=== PATIENT | female | born 1960 | race African-American/Black ===

== ENCOUNTER 2020-06-28 09:35 | Inpatient (IN) ==
[2020-06-28 09:57] VITALS: BMI 37.1
--- NOTE | 2020-06-28 10:16 | DR.EXTPAIN ---
HPI Time seen Time Seen by Provider: 06/28/20 10:09 PCP Primary Care Physician: RAY CARPIO HPI Comment HPI Comment: Patient brought in by family. Family reports that patient fell a few days ago and hurt the right foot. Continued to complain of pain, so family brought her in for eval. Family notes that the leg is hot and swollen since the fall. Patient with dementia and doesn't contribute to history. Complaint/Symptoms Chief Complaint:: PT STATES SHE FELL YESTERDAY ( C/O RIGHT FOOT PAIN ) EDEMA , REDNESS AND WARMTH NOTED ,BR NO DEFORMITY NOTED ,BR PT POOR HISTORIAN DUE TO DEMENTIA COVID-19 Coronavirus risk:travel/contact w/high risk person: No Has patient experienced Coronavirus symptoms: No Source History Provided: Patient Mode of arrival Mode of Arrival: Stretcher Timing Onset of Chief Complaint: 06/27/20 PMH PMH Past Medical History: Yes Past Medical History: Anemia, Arthritis, Diabetes, Gout and Hypertension Past Surgical History: Yes Family History History of Family Medical Conditions: No Social History Have you used tobacco products in the last 12 months: No Type of Tobacco Use: None Does any household member use tobacco: No Alcohol Use: None Do you use any recreational Drugs:: No Lives With: Family Lives Where: Home Travel Risk Coronavirus risk:travel/contact w/high risk person: No Has patient experienced Coronavirus symptoms: No Infectious screening In the last 2 months have you had wt loss of >10#?: NO Have you had fever, night sweats or hemotysis?: No Have you traveled outside the country in the last 6 months?: No Isolation: Standard ROS Review of Systems Constitutional: See HPI and Fever Musculoskeletal: See HPI, Right and Leg All Other Systems: Reviewed and Negative PE Vital Signs Vitals: Temperature 100.3 F Pulse Rate 91 Respiratory Rate 20 Blood Pressure 137/65 O2 Sat by Pulse Oximetry 97 General Limitations: Altered Mental Status (h/o dementia at baseline. ) General Appearance: In No Apparent Distress ENT ENT Exam: Normal Exam Neck Neck Exam: Normal Inspection Chest Chest Inspection: Normal Inspection and Symmetric Chest Wall Rise Respiratory Respiratory Exam: Normal Lung Sounds Bilat Respiratory Exam: Bilateral: Clear to Auscultation Extremities Extremities Exam: Tenderness and Other (redness, increased temperature and tenderness at the right leg. ) COURSE Treatment Treatment: Spoke with Dr. Beach who accepts patient for admission. Consult placed for Ortho, awaiting callback. ROR Labs Reviewed Result Diagrams: 06/28/20 10:06/28/20 10:27 Laboratory: WBC 11.9 X10^3/uL (3.6-10.0) H 06/28/20 10: RBC 2.93 X10^6/uL (3.5-5.4) L 06/28/20 10: Hgb 8.2 g/dL (12.0-16.0) L 06/28/20 10:27 Hct 25.9 % (36.0-47.0) L 06/28/20 10:27 MCV 88.3 fL (80.0-100.0) 06/28/20 10: MCH 28.1 pg (27.0-34.0) 06/28/20 10: MCHC 31.9 g/dL (33.0-35.0) L 06/28/20 10: RDW 16.1 % (11.6-16.5) 06/28/20 10:27 Plt Count 151 X10^3/uL (150.0-450.0) 06/28/20 10:27 MPV 7.9 fL (7.4-11.0) 06/28/20 10:27 Neut % (Auto) 83.2 % (42.0-75.0) H 06/28/20 10: Lymph % (Auto) 7.3 % (21.0-51.0) L 06/28/20 10: [place] % (Auto) 8.5 % (0.0-13.0) 06/28/20 10:27 Eos % (Auto) 0.7 % (0.9-2.9) L 06/28/20 10:27 Baso % (Auto) 0.3 % (0.2-1.0) 06/28/20 10:27 Neut # (Auto) 9.9 x10^3/uL (2.2-4.8) H 06/28/20 10:27 Lymph # (Auto) 0.9 X10^3/uL (1.3-2.9) L 06/28/20 10:27 [place] # (Auto) 1.0 x10^3/uL (0.3-0.8) H 06/28/20 10:27 Eos # (Auto) 0.1 x10^3/uL (0.0-0.2) 06/28/20 10:27 Baso # (Auto) 0.0 X10^3/uL (0.0-0.1) 06/28/20 10:27 Absolute Nucleated RBC 0.0 /100WBC 06/28/20 10:27 D-Dimer 7.98 ug/ml (0.0-0.57) H* 06/28/20 10:27 Sodium 145 mmol/L (136-145) 06/28/20 10:27 Corrected Sodium 146 mmol/L (136-145) H 06/28/20 10:27 Potassium 4.4 mmol/L (3.5-5.1) 06/28/20 10:27 Chloride 109 mmol/L (98-107) H 06/28/20 10:27 Carbon Dioxide 21.1 mmol/L (21-32) 06/28/20 10:27 BUN 54 mg/dL (7-18) H 06/28/20 10:27 Creatinine 5.54 mg/dL (0.55-1.02) H 06/28/20 10:27 Est GFR (MDRD) Af Amer 10 (>60) L 06/28/20 10:27 Est GFR (MDRD) Non-Af 8 (>60) L 06/28/20 10:27 Glucose 151 mg/dL (65-99) H 06/28/20 10:27 Calcium 7.5 mg/dL (8.5-10.1) L 06/28/20 10:27 Corrected Calcium 8.2 mg/dL (8.5-10.1) L 06/28/20 10:27 Total Bilirubin 2.40 mg/dL (0.2-1.0) H 06/28/20 10:27 AST 39 Units/L (15-37) H 06/28/20 10:27 ALT 23 Units/L (12-78) 06/28/20 10:27 Alkaline Phosphatase 113 Units/L (46-116) 06/28/20 10:27 Total Protein 8.3 g/dL (6.4-8.2) H 06/28/20 10:27 Albumin 3.1 g/dL (3.4-5.0) L 06/28/20 10:27 Globulin 5.2 g/dL (2.5-4.5) H 06/28/20 10:27 Albumin/Globulin Ratio 0.6 Ratio (1.1-2.1) L 06/28/20 10:27 Specimen Type Catherized urine 06/28/20 14:03 Urine Color Yellow (YELLOW) 06/28/20 14:03 Urine Appearance Clear (CLEAR) 06/28/20 14:03 Urine pH 6.0 (5.0 - 8.0) 06/28/20 14:03 Ur Specific [place] 1.010 (1.000-1.030) 06/28/20 14:03 Urine Protein 4+ (NEGATIVE) 06/28/20 14:03 Urine Glucose (UA) Negative (NEGATIVE) 06/28/20 14:03 Urine Ketones 2+ (NEGATIVE) 06/28/20 14:03 Urine Occult Blood 2+ (NEGATIVE) 06/28/20 14:03 Urine Nitrite Negative (NEGATIVE) 06/28/20 14:03 Urine Bilirubin Negative (NEGATIVE) 06/28/20 14:03 Urine Urobilinogen Normal (NORMAL) 06/28/20 14:03 Ur Leukocyte Esterase Negative (NEGATIVE) 06/28/20 14:03 Urine RBC 0-2 /HPF (0-3) 06/28/20 14:03 Urine WBC 0-2 /HPF (0-5) 06/28/20 14:03 Ur Squamous Epith Cells Few /HPF (NEGATIVE) 06/28/20 14:03 Amorphous Sediment Trace /HPF (NEGATIVE) 06/28/20 14:03 Urine Bacteria Trace /HPF (NEGATIVE) 06/28/20 14:03 Ur Culture Indicated? No/not indicated 06/28/20 14:03 Influenza Type A Ag Negative-presumptive (NEGATIVE) 06/28/20 10:23 Influenza Type B Ag Negative-presumptive (NEGATIVE) 06/28/20 10:23 SARS-CoV-2 (PCR) Negative (NEGATIVE) 06/28/20 13:31 Other Results Comments: HISTORY PAIN, EDEMA, FEVER RT LOWER EXT STUDY Duplex LOWER EXT VENOUS ultrasound, right COMPARISON None TECHNIQUE Multiple choi scale and color flow Doppler images of the deep venous system were obtained of the right lower extremity. FINDINGS The deep venous system of the right lower extremity was evaluated from the level of the common femoral vein through the posterior tibial vein. Normal color flow and augmentation can be observed. In addition, normal compression is seen throughout the deep venous system. IMPRESSION Negative for DVT in right lower extremity. Electronically signed by: Oswald Segura (Jun 28, 2020 11:58:43) HISTORY FEVER UNKNOWN ORIGIN STUDY CHEST, 1 VIEW COMPARISON None TECHNIQUE AP view of the chest FINDINGS Cardiac silhouette is enlarged. Diffuse mild scattered interstitial opacities with right infrahilar airspace opacity. No large pleural effusion. No pneumo thorax. IMPRESSION Cardiomegaly. Interstitial and airspace opacities may represent pulmonary edema or pneumonia. Electronically signed by: Facundo Perry (Jun 28, 2020 10:41:18) HISTORY PT STATES SHE FELL YESTERDAY ( C/O RIGHT FOOT PAIN ) EDEMA,REDNESS AND WARMTH STUDY FOOT, RIGHT COMPARISON None TECHNIQUE Three-view right foot FINDINGS Severe soft tissue swelling about the ankle and foot. There is avulsion of the superior calcaneal tuberosity. Multiple vascular calcifications are present. Osteopenia. Increased density of bones in the midfoot particularly the cuboid. IMPRESSION Avulsion fracture of the superior calcaneal tuberosity at the Achilles insertion is associated with diabetes. Severe soft tissue swelling about the foot and ankle. Increased density of bones in the midfoot particularly the cuboid may represent bone infarct but other sclerotic lesion is not excluded. Consider MRI. Electronically signed by: Facundo Perry (Jun 28, 2020 10:44:09) Opioid Opioid Risk Tool Age (Roby box if 16-45): No Total: 0 Total Score Risk Category: Low Risk Copyright: Livan MARIO predicting aberrant behaviors Diagnosis Discharge Problem: Cellulitis and abscess of right leg Pneumonia Qualifiers: Pneumonia type: due to unspecified organism Laterality: right Lung location: unspecified part of lung Qualified Code(s): J18.9 - Pneumonia, unspecified organism Acute renal failure Qualifiers: Acute renal failure type: unspecified Qualified Code(s): N17.9 - Acute kidney failure, unspecified Foot fracture, right Qualifiers: Encounter type: initial encounter Fracture type: closed Qualified Code(s): S92.901A - Unspecified fracture of right foot, initial encounter for closed fracture
[2020-06-28] MEDS ORDERED: NS 1000 ML 1,000 ML ONE ×3 (10:18→14:23)
[2020-06-28] MEDS ORDERED: TYLENOL 500 MG TAB EXTRA STRENGTH PO ONE (10:18)
[2020-06-28] MEDS: NS 1000 ML 1,000 ML IV ONE ×2 (10:22→12:05)
[2020-06-28] MEDS: TYLENOL 500 MG TAB EXTRA STRENGTH PO ONE ×2 (10:23→11:03)
[2020-06-28] MEDS ORDERED: OFIRMEV IV 1000 MG VIAL 1,000 MG/100 ML VIAL IV ONE (10:33)
[2020-06-28] MEDS: OFIRMEV IV 1000 MG VIAL 1,000 MG/100 ML VIAL IV ONE ×2 (10:35→11:03)
--- NOTE | 2020-06-28 10:41 | RAD ---
HISTORYFEVER UNKNOWN ORIGINSTUDYCHEST, 1 VIEWCOMPARISONNoneTECHNIQUEAP view of the chestFINDINGSCardiac silhouette is enlarged. Diffuse mild scattered interstitial opacities with right infrahilar airspace opacity. No large pleural effusion. No pneumothorax.IMPRESSIONCardiomegaly. Interstitial and airspace opacities may represent pulmonary edema or pneumonia.Electronically signed by: Facundo Perry (Jun 28, 2020 10:41:18)
[2020-06-28 10:42] LABS: BASOPHILS % (AUTO) 0.3 % (0.2-1.0); EOSINOPHILS # (AUTO) 0.1 x10^3/uL (0.0-0.2); EOSINOPHILS % (AUTO) 0.7 % (0.9-2.9); HEMATOCRIT 25.9 % (36.0-47.0); HEMOGLOBIN 8.2 g/dL (12.0-16.0); LYMPHOCYTES # (AUTO) 0.9 X10^3/uL (1.3-2.9); LYMPHOCYTES % (AUTO) 7.3 % (21.0-51.0); MEAN CORPUSCULAR HEMOGLOBIN 28.1 pg (27.0-34.0); MEAN CORPUSCULAR HGB CONC 31.9 g/dL (33.0-35.0); MEAN CORPUSCULAR VOLUME 88.3 fL (80.0-100.0); MEAN PLATELET VOLUME 7.9 fL (7.4-11.0); MONOCYTES % (AUTO) 8.5 % (0.0-13.0); NEUTROPHILS # (AUTO) 9.9 x10^3/uL (2.2-4.8); NEUTROPHILS % (AUTO) 83.2 % (42.0-75.0); PLATELET COUNT 151 X10^3/uL (150.0-450.0); RED BLOOD COUNT 2.93 X10^6/uL (3.5-5.4); RED CELL DISTRIBUTION WIDTH 16.1 % (11.6-16.5); WHITE BLOOD COUNT 11.9 X10^3/uL (3.6-10.0)
--- NOTE | 2020-06-28 10:44 | RAD ---
HISTORYPT STATES SHE FELL YESTERDAY ( C/O RIGHT FOOT PAIN ) EDEMA,REDNESS AND WARMTHSTUDYFOOT, RIGHTCOMPARISONNoneTECHNIQUEThree-view right footFINDINGSSevere soft tissue swelling about the ankle and foot. There is avulsion of the superior calcaneal tuberosity. Multiple vascular calcifications are present. Osteopenia. Increased density of bones in the midfoot particularly the cuboid.IMPRESSIONAvulsion fracture of the superior calcaneal tuberosity at the Achilles insertion is associated with diabetes. Severe soft tissue swelling about the foot and ankle.Increased density of bones in the midfoot particularly the cuboid may represent bone infarct but other sclerotic lesion is not excluded. Consider MRI.Electronically signed by: Facundo Perry (Jun 28, 2020 10:44:09)
[2020-06-28 10:51] LABS: ALBUMIN 3.1 g/dL (3.4-5.0); CALCIUM 7.5 mg/dL (8.5-10.1); CARBON DIOXIDE 21.1 mmol/L (21-32); COR CA(FOR HYPOALB) 8.2 mg/dL (8.5-10.1); CREATININE 5.54 mg/dL (0.55-1.02); TOTAL PROTEIN 8.3 g/dL (6.4-8.2)
--- NOTE | 2020-06-28 11:59 | VAS ---
HISTORYPAIN, EDEMA, FEVER RT LOWER EXTSTUDYDuplex LOWER EXT VENOUS ultrasound, rightCOMPARISONNoneTECHNIQUEMultiple choi scale and color flow Doppler images of the deep venous system were obtained of the right lower extremity.FINDINGSThe deep venous system of the right lower extremity was evaluated from the level of the common femoral vein through the posterior tibial vein. Normal color flow and augmentation can be observed. In addition, normal compression is seen throughout the deep venous system.IMPRESSIONNegative for DVT in right lower extremity.Electronically signed by: Oswald Segura (Jun 28, 2020 11:58:43)
[2020-06-28] MEDS ORDERED: LEVAQUIN PREMIX IV 750 MG 750 MG/150 ML BAG IV ONE ×2 (13:30→13:49)
[2020-06-28 14:15] LABS: BILIRUBIN,URINE NEGATIVE (NEGATIVE); BLOOD/HEMOGLOBIN,URINE 2+ (NEGATIVE); GLUCOSE, URINE NEGATIVE (NEGATIVE); KETONES,URINE 2+ (NEGATIVE); LEUKOCYTE ESTERASE ,URINE NEGATIVE (NEGATIVE); NITRITES,URINE NEGATIVE (NEGATIVE); PROTEIN,URINE 4+ (NEGATIVE); UROBILINOGEN,URINE NORMAL (NORMAL)
[2020-06-28 14:32] LABS: AMORPHOUS SEDIMENT,UR TRACE /HPF (NEGATIVE); APPEARANCE,URINE CLEAR (CLEAR); BACTERIA,URINE TRACE /HPF (NEGATIVE); COLOR,URINE YELLOW (YELLOW); RBC,URINE 0-2 /HPF (0-3); SQUAMOUS EPITHELIAL CELL,UR FEW /HPF (NEGATIVE)
[2020-06-28] MEDS: NS 1000 ML 1,000 ML IV SCH (17:57)
[2020-06-29] MEDS ORDERED: PERCOCET TAB 5/325 MG PO ONE (03:45)
[2020-06-29] MEDS ORDERED: PERCOCET TAB 5/325 MG ONE (03:48)
[2020-06-29 06:40] LABS: BASOPHILS % (AUTO) 0.3 % (0.2-1.0); EOSINOPHILS # (AUTO) 0.1 x10^3/uL (0.0-0.2); EOSINOPHILS % (AUTO) 1.1 % (0.9-2.9); MONOCYTES # (AUTO) 0.4 x10^3/uL (0.3-0.8); WHITE BLOOD COUNT 7.9 X10^3/uL (3.6-10.0)
[2020-06-29 06:47] LABS: HEMATOCRIT 20.5 % (36.0-47.0); LYMPHOCYTES # (AUTO) 0.7 X10^3/uL (1.3-2.9); LYMPHOCYTES % (AUTO) 9.4 % (21.0-51.0); MEAN CORPUSCULAR HEMOGLOBIN 29.3 pg (27.0-34.0); MEAN CORPUSCULAR HGB CONC 32.9 g/dL (33.0-35.0); MEAN PLATELET VOLUME 7.8 fL (7.4-11.0); MONOCYTES % (AUTO) 4.9 % (0.0-13.0); NEUTROPHILS # (AUTO) 6.7 x10^3/uL (2.2-4.8); NEUTROPHILS % (AUTO) 84.3 % (42.0-75.0); PLATELET COUNT 128 X10^3/uL (150.0-450.0); RED CELL DISTRIBUTION WIDTH 16.2 % (11.6-16.5)
[2020-06-29 06:51] LABS: HEMOGLOBIN 6.7 g/dL (12.0-16.0)
[2020-06-29 06:52] LABS: ALBUMIN 2.2 g/dL (3.4-5.0); CALCIUM 6.8 mg/dL (8.5-10.1); CARBON DIOXIDE 19.4 mmol/L (21-32); COR CA(FOR HYPOALB) 8.2 mg/dL (8.5-10.1); CREATININE 5.36 mg/dL (0.55-1.02); TOTAL PROTEIN 6.4 g/dL (6.4-8.2)
[2020-06-29] MEDS ORDERED: ZITHROMAX TAB 250 MG PO ONE (07:59)
--- NOTE | 2020-06-29 09:26 | DR.H&P ---
H&P History & Physical for Day of: H&P Date: 06/29/20 Chief Complaint Chief Complaint: fall and right foot pain and swelling Allergies Allergies Allergy/AdvReac Type Severity Reaction Status Date / Time No Known Drug Allergies Allergy Verified 06/28/20 09:35 History of Present Illness History of Present Illness: Ms. Harris is a 59y/o female with a PMH of HTN, H LD, GERD, CKD, Type 2 DM and chronic opioid use presented after a fall with right foot pain and swelling. Patient does has mild cognitive disorder and unable to provide details. She states she fell 1-2 days ago and hurt her right foot so was brought to the ED. She states she tripped over a rug and fell. Unclear what patient's baseline ambulation status is at home, no family present at bedside during my exam. ED work-up - Right foot XR: concerning for avulsion fracture and bone infarction or sclerotic lesion, recommend MRI to further evaluate - CXR: concerning for interstitial/airspace opacities, edema vs pna - Right LE U/S: negative for DVT Labs: Hgb 8.2 BUN/Cr: 54/5.54 Patient was noted to have swelling, redness and warmth of the right lower leg and foot. She was admitted for right foot fracture with cellulitis, acute on chronic renal failure and pneumonia. COVID was negative. Patient was on 2 L during my exam, reports mild cough. XR findings were discussed with Dr. Coreas, he recommended to continue boot to the right foot and IV abx. No surgery indicated at this time due to infection. If cellulitis does not improve or worsens, consider repeating U/S to rule out abscess. Plan: received IV levaquin in the ED, will start Rocephin and Azithromax, duonebs, sputum culture. Follow blood cultures. Obtain PCP records. Order MRI right foot. Repeat H/H and if < 7 then transfuse 2 units. Patient denies anemia panel, reports hx of transfusion. She also reports she was told in the past that she has renal disease. Patient is not on any medications for DM and denies being diabetic. Will add SSI for now. Monitor AM labs. Continue gentle hydration. Resume home medications. Past Medical History Past Medical History: Anemia, Arthritis, Diabetes, Gout and Hypertension Past Surgical History Surgical History: Ortho Surgery Social History Have you used tobacco products in the last 12 months: No Type of Tobacco Use: None Does any household member use tobacco: No Alcohol Use: None Drug Use: None Medications Home Medications: No Known Drug Allergies Allergy (Verified 06/28/20 09:35) CONTINUE taking the following medications amlodipine 5 mg PO DAILY 06/28/20 [History] clonidine HCl 0.1 mg PO DAILY 06/28/20 [History] diazepam 5 mg PO BID PRN 06/28/20 [History] furosemide 40 mg PO DAILY 06/28/20 [History] gabapentin 300 mg PO HS 06/28/20 [History] magnesium oxide 400 mg PO DAILY 06/28/20 [History] metoprolol tartrate 100 mg PO BID 06/28/20 [History] oxycodone 15 mg PO TID PRN 06/28/20 [History] potassium chloride 20 meq PO DAILY 06/28/20 [History] prednisone 5 mg PO DAILY 06/28/20 [History] tamsulosin 0.4 mg PO DAILY 06/28/20 [History] Labs Result Diagrams: 06/29/20 10:10 06/29/20 06:15 Labs: Laboratory WBC 7.9 X10^3/uL (3.6-10.0) 06/29/20 06:15 RBC 2.30 X10^6/uL (3.5-5.4) L 06/29/20 06:15 Hgb 6.7 g/dL (12.0-16.0) L* 06/29/20 06:15 Hct 20.5 % (36.0-47.0) L 06/29/20 06:15 MCV 89.0 fL (80.0-100.0) 06/29/20 06:15 MCH 29.3 pg (27.0-34.0) 06/29/20 06:15 MCHC 32.9 g/dL (33.0-35.0) L 06/29/20 06:15 RDW 16.2 % (11.6-16.5) 06/29/20 06:15 Plt Count 128 X10^3/uL (150.0-450.0) L 06/29/20 06:15 MPV 7.8 fL (7.4-11.0) 06/29/20 06:15 Neut % (Auto) 84.3 % (42.0-75.0) H 06/29/20 06:15 Lymph % (Auto) 9.4 % (21.0-51.0) L 06/29/20 06:15 [place] % (Auto) 4.9 % (0.0-13.0) 06/29/20 06:15 Eos % (Auto) 1.1 % (0.9-2.9) 06/29/20 06:15 Baso % (Auto) 0.3 % (0.2-1.0) 06/29/20 06:15 Neut # (Auto) 6.7 x10^3/uL (2.2-4.8) H 06/29/20 06:15 Lymph # (Auto) 0.7 X10^3/uL (1.3-2.9) L 06/29/20 06:15 [place] # (Auto) 0.4 x10^3/uL (0.3-0.8) 06/29/20 06:15 Eos # (Auto) 0.1 x10^3/uL (0.0-0.2) 06/29/20 06:15 Baso # (Auto) 0.0 X10^3/uL (0.0-0.1) 06/29/20 06:15 Absolute Nucleated RBC 0.0 /100WBC 06/29/20 06:15 D-Dimer 7.98 ug/ml (0.0-0.57) H* 06/28/20 10:27 Sodium 146 mmol/L (136-145) H 06/29/20 06:15 Corrected Sodium 147 mmol/L (136-145) H 06/29/20 06:15 Potassium 4.2 mmol/L (3.5-5.1) 06/29/20 06:15 Chloride 113 mmol/L (98-107) H 06/29/20 06:15 Carbon Dioxide 19.4 mmol/L (21-32) L 06/29/20 06:15 BUN 53 mg/dL (7-18) H 06/29/20 06:15 Creatinine 5.36 mg/dL (0.55-1.02) H 06/29/20 06:15 Est GFR (MDRD) Af Amer 11 (>60) L 06/29/20 06:15 Est GFR (MDRD) Non-Af 9 (>60) L 06/29/20 06:15 Glucose 123 mg/dL (65-99) H 06/29/20 06:15 POC Glucose (mg/dL) 117 mg/dL (65-99) H 06/29/20 05:19 Calcium 6.8 mg/dL (8.5-10.1) L 06/29/20 06:15 Corrected Calcium 8.2 mg/dL (8.5-10.1) L 06/29/20 06:15 Total Bilirubin 0.90 mg/dL (0.2-1.0) 06/29/20 06:15 AST 31 Units/L (15-37) 06/29/20 06:15 ALT 17 Units/L (12-78) 06/29/20 06:15 Alkaline Phosphatase 84 Units/L (46-116) 06/29/20 06:15 Total Protein 6.4 g/dL (6.4-8.2) 06/29/20 06:15 Albumin 2.2 g/dL (3.4-5.0) L 06/29/20 06:15 Globulin 4.2 g/dL (2.5-4.5) 06/29/20 06:15 Albumin/Globulin Ratio 0.5 Ratio (1.1-2.1) L 06/29/20 06:15 Specimen Type Catherized urine 06/28/20 14:03 Urine Color Yellow (YELLOW) 06/28/20 14:03 Urine Appearance Clear (CLEAR) 06/28/20 14:03 Urine pH 6.0 (5.0 - 8.0) 06/28/20 14:03 Ur Specific [place] 1.010 (1.000-1.030) 06/28/20 14:03 Urine Protein 4+ (NEGATIVE) 06/28/20 14:03 Urine Glucose (UA) Negative (NEGATIVE) 06/28/20 14:03 Urine Ketones 2+ (NEGATIVE) 06/28/20 14:03 Urine Occult Blood 2+ (NEGATIVE) 06/28/20 14:03 Urine Nitrite Negative (NEGATIVE) 06/28/20 14:03 Urine Bilirubin Negative (NEGATIVE) 06/28/20 14:03 Urine Urobilinogen Normal (NORMAL) 06/28/20 14:03 Ur Leukocyte Esterase Negative (NEGATIVE) 06/28/20 14:03 Urine RBC 0-2 /HPF (0-3) 06/28/20 14:03 Urine WBC 0-2 /HPF (0-5) 06/28/20 14:03 Ur Squamous Epith Cells Few /HPF (NEGATIVE) 06/28/20 14:03 Amorphous Sediment Trace /HPF (NEGATIVE) 06/28/20 14:03 Urine Bacteria Trace /HPF (NEGATIVE) 06/28/20 14:03 Ur Culture Indicated? No/not indicated 06/28/20 14:03 Influenza Type A Ag Negative-presumptive (NEGATIVE) 06/28/20 10:23 Influenza Type B Ag Negative-presumptive (NEGATIVE) 06/28/20 10:23 SARS-CoV-2 (PCR) Negative (NEGATIVE) 06/28/20 13:31 Review of Systems Constitutional: Fever and Weakness Eyes: No Symptoms Reported ENT: No Symptoms Reported Respiratory: Cough and Sputum Cardiovascular: No Symptoms Reported Gastrointestinal: No Symptoms Reported Genitourinary: No Symptoms Reported Musculoskeletal: Leg Pain and Foot Pain Skin: Other (right foot redness) Neurological: No Symptoms Reported Physical Exam Vital Signs: Temperature 98 F Pulse Rate [Right Brachial] 83 Pulse Rate 91 Respiratory Rate 20 Blood Pressure [Right Arm] 121/75 Blood Pressure 137/65 O2 Sat by Pulse Oximetry 99 Oriented: Normal Eyes: Normal Ear: Normal Nose: Normal Respiratory: Diminished Throughout, RLL Insp. Wheeze and LLL Insp.Wheeze Cardiovascular: Normal Auscultation: Bowel Sounds: Normal Palpation: Normal Tenderness: Normal Skin: Other (right foot warm, slight erythema, limited ROM, no open wounds or blisters ) Musculoskeletal: Right and Foot Psychiatric: Normal Mood Description: Calm Affect: Normal Speech Pattern: Clear and Delayed Assessment/Plan (1) Foot fracture, right: Qualifiers: Encounter type: initial encounter Fracture type: closed Qualified Code(s): S92.901A - Unspecified fracture of right foot, initial encounter for closed fracture Status: Acute (2) Cellulitis of right foot: Status: Acute (3) Acute on chronic renal failure: Qualifiers: Acute renal failure type: unspecified Chronic kidney disease stage: unspecified stage Qualified Code(s): N17.9 - Acute kidney failure, unspecified; N18.9 - Chronic kidney disease, unspecified Status: Acute (4) Pneumonia: Qualifiers: Pneumonia type: due to unspecified organism Laterality: unspecified laterality Lung location: unspecified part of lung Qualified Code(s): J18.9 - Pneumonia, unspecified organism Status: Acute (5) HTN (hypertension): Qualifiers: Hypertension type: essential hypertension Qualified Code(s): I10 - Essential (primary) hypertension Status: Acute (6) HLD (hyperlipidemia): Qualifiers: Hyperlipidemia type: unspecified Qualified Code(s): E78.5 - Hyperlipidemia, unspecified Status: Acute Review H&P Reviewed: Yes Patient was examined?: Yes
[2020-06-29] MEDS ORDERED: NEURONTIN CAP 300 MG ONE (09:40)
[2020-06-29] MEDS: NS 1000 ML 1,000 ML IV SCH ×2 (09:48→23:01)
[2020-06-29] MEDS: LOPRESSOR TAB 50 MG PO SCH ×2 (09:49→21:00)
[2020-06-29] MEDS: ROCEPHIN VIAL 1 GRAM 1 G in NS 100 ML IV + SPIKE MINIBAG* 100 ML IV SCH ×2 (09:49)
[2020-06-29] MEDS: NORVASC TAB 5 MG PO SCH ×2 (09:50→09:51)
[2020-06-29] MEDS: DUONEB 0.5 MG/3 MG (3 mL) NEB SCH ×3 (10:13→21:30)
[2020-06-29 10:23] LABS: HEMATOCRIT 21.2 % (36.0-47.0)
[2020-06-29 10:30] LABS: HEMOGLOBIN 6.9 g/dL (12.0-16.0)
[2020-06-29] MEDS ORDERED: NS 500 ML IV 500 ML IV ONE (10:42)
[2020-06-29] MEDS: PERCOCET TAB 5/325 MG PO PRN ×2 (14:40→21:00)
[2020-06-29] MEDS ORDERED: ZANAFLEX PO PRN (15:08)
--- NOTE | 2020-06-29 17:14 | MRI ---
Exam:EXT LOWER JOINT W/O CONIndication: RT FOOT FX, XR CONCERNING FOR INFECTION,PAIN, SWELLINGComparison: [None available]Technique:Multiplanar, multisequence imaging of the right foot without IV contrast administration.Findings:[Examination limited by lack of intravenous contrast administration. Moderately displaced large avulsion fracture within the posterior calcaneus with retraction of the Achilles tendon. There is mild bone marrow edema at site of avulsion within the posterior calcaneus.Large infarcts are noted within the distal tibia with additional infarcts present within the cuboid, intermediate cuneiform, great toe and 5th toe metatarsal bones. 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 No acute tear of the medial or lateral ankle ligamentous complexes.Mild tenosynovitis of the posterior tibialis and peroneus tendons. Moderate fatty atrophy of the flexor hallucis longus tendon.Non localizing diffuse soft tissue swelling within the right foot. There is no abnormal STIR or T1 signal within the distal right foot to suggest osteomyelitis. No definite gas or localizing fluid collection within the foot.Lisfranc ligament is normal. Plantar fascia demonstrates these fight formation with chronic fasciitis of the medial band, no evidence of acute fasciitis. Intrinsic flexor muscles of the foot are intact. Long plantar ligament is intact. Sinus tarsi demonstrates no signal abnormality to suggest underlying cyst or mass. There is no acute sprain of the interosseous or cervical ligaments.IMPRESSIONDiffuse soft tissue swelling within the right foot without localizing fluid collection or gas. No marrow signal changes within the foot to suggest acute osteomyelitis.Moderately displaced large avulsion fracture at the Achilles insertion onto the posterior calcaneus. Mild edema is noted within the posterior calcaneus at site of avulsion.Either chronic avulsion fracture of the posterior tibialis tendon or type 2 os navicular with pseudoarthrosis and degenerative change of the ossicle and medial navicular.Osteonecrosis of the distal tibia, cuboid, intermediate cuneiform, 1st and 5th toe metatarsal bones.Chronic plantar fasciitis involving the medial band of the plantar fascia without evidence of acute fasciitis.Mild tenosynovitis of the peroneal and posterior tibialis tendons.Electronically signed by: MARIA EUGENIA HUERTA (Jun 29, 2020 17:14:22)
[2020-06-29 17:25] LABS: IRON 31 ug/dL (50-175)
[2020-06-29 19:12] LABS: CREATININE,URINE 67.74 mg/dL (29-226)
[2020-06-29] MEDS: NEURONTIN CAP 300 MG PO SCH (21:00)
[2020-06-30] MEDS ORDERED: NS 250 ML IV 250 ML IV ONE (01:04)
[2020-06-30] MEDS: PERCOCET TAB 5/325 MG PO PRN ×4 (03:30→23:51)
[2020-06-30] MEDS ORDERED: MAG-OX TAB ONE (05:32)
[2020-06-30] MEDS: DUONEB 0.5 MG/3 MG (3 mL) NEB SCH ×3 (06:35→21:20)
[2020-06-30] MEDS: MAG-OX TAB PO SCH (06:41)
[2020-06-30 07:40] LABS: CARBON DIOXIDE 16.9 mmol/L (21-32); CREATININE 5.08 mg/dL (0.55-1.02)
[2020-06-30] MEDS ORDERED: FOLIC ACID TAB 1 MG ONE (07:54)
[2020-06-30] MEDS ORDERED: LIPITOR TAB 20 MG ONE (07:55)
[2020-06-30] MEDS ORDERED: PREDNISONE TAB 5 MG PO ONE (07:55)
[2020-06-30] MEDS ORDERED: ZITHROMAX TAB 250 MG PO ONE (07:55)
[2020-06-30 07:58] LABS: BASOPHILS % (AUTO) 0.3 % (0.2-1.0); EOSINOPHILS # (AUTO) 0.2 x10^3/uL (0.0-0.2); HEMATOCRIT 27.2 % (36.0-47.0); HEMOGLOBIN 9.2 g/dL (12.0-16.0); LYMPHOCYTES # (AUTO) 0.9 X10^3/uL (1.3-2.9); LYMPHOCYTES % (AUTO) 10.5 % (21.0-51.0); MEAN CORPUSCULAR HEMOGLOBIN 29.6 pg (27.0-34.0); MEAN CORPUSCULAR HGB CONC 33.7 g/dL (33.0-35.0); MEAN CORPUSCULAR VOLUME 87.9 fL (80.0-100.0); MEAN PLATELET VOLUME 7.9 fL (7.4-11.0); MONOCYTES # (AUTO) 0.6 x10^3/uL (0.3-0.8); MONOCYTES % (AUTO) 6.6 % (0.0-13.0); NEUTROPHILS % (AUTO) 80.6 % (42.0-75.0); PLATELET COUNT 130 X10^3/uL (150.0-450.0); RED CELL DISTRIBUTION WIDTH 15.3 % (11.6-16.5); WHITE BLOOD COUNT 8.7 X10^3/uL (3.6-10.0)
[2020-06-30] MEDS: PREDNISONE TAB 5 MG PO SCH (08:51)
[2020-06-30] MEDS: FOLIC ACID TAB 1 MG PO SCH (08:51)
[2020-06-30] MEDS: LIPITOR TAB 20 MG PO SCH (08:51)
[2020-06-30] MEDS: ZITHROMAX TAB 250 MG PO SCH (08:51)
[2020-06-30] MEDS: LOPRESSOR TAB 50 MG PO SCH ×2 (08:52→21:45)
--- NOTE | 2020-06-30 09:11 | PCM.PROG ---
Progress Note Progress Note for Day of Date of Exam: 06/30/20 Subjective Subjective: Patient seen at bedside, no acute events noted overnight. This AM, patient had a temp of 101. She states she slept ok, feels about the same. She denies N/V/D or abdominal pain. She is on 2L NC, reports slight cough. Patient was given 2 units of PRBCs yesterday. Records obtained from PCP for her last visit in February: Labs and medications reviewed. Patient's renal function then was 36/3.90, Hgb 10.4 A1C: 7.1 Labs: Hgb 9.2 Plt: 130 Na: 144 Cl: 111 BUN/Cr: 48/5.08 CO2: 16.9 A1C: 6.1% FeN a> 4% Low Iron, normal Folate and Vit B12 MRI LE: diffuse soft tissue swelling with the right foot without localizing fluid collection or gas. No signs of osteomyelitis. Moderately displaced large avulsion fracture at the Achilles insertion onto post calcaneus. Chronic avulsion fracture of the post tibialis tendon with pseudoarthrosis and DDD changes. Osteonecrosis of the distal tibia, cuboid and intermediate cunieform, 1st and 5th metatarsal bones. Chronic plantar fasciitis. Mild tenosynovitis of the peroneal and post tibialis tendon. Plan: will switch Rocephin to Zosyn, get CXR and CTAP without contrast to evaluate for any renal obstruction, will fax MRI report to Dr. Coreas's office and discuss further recommendations. Add Sodium Bicarb, iron supplements. Continue duonebs prn. Wean O2 as tolerated. Past Medical Family Social History Past Med/Fam/Surg Hx: No changes since H&P Allergies: Allergies No Known Drug Allergies Allergy (Verified 06/28/20 09:35) Review of Systems ROS: No change since H&P Vital Signs and I&O's Vital Signs: Temperature 97.4 F Pulse Rate [Right Brachial] 88 Pulse Rate 83 Respiratory Rate 19 Blood Pressure [Right Arm] 156/71 Blood Pressure 137/65 O2 Sat by Pulse Oximetry 98 Intake and Output: Intake & Output 06/27/20 06/28/20 06/29/20 06/30/20 23:59 23:59 23:59 23:59 Intake Total 530 / 530 1810 / 1810 1450 / 1450 Output Total 2000 / 2000 Balance 530 / 530 -190 / -190 1450 / 1450 Physical Exam Oriented: Normal Eyes: Normal Ear: Normal Nose: Normal Respiratory: Generalized and Diminished Cardiovascular: Normal Auscultation: Bowel Sounds: Normal Tenderness: Normal Skin: Other (right foot warm, slight erythema, limited ROM, no open wounds or blisters ) Musculoskeletal: Right and Foot Psychiatric: Normal Mood Description: Calm Affect: Normal Speech Pattern: Clear and Delayed Laboratory and Diagnostics Result Diagrams: 06/30/20 07:21 06/30/20 07:21 Labs: 06/28/20 10:27 Blood Blood Culture - Preliminary 06/28/20 09:50 Blood Blood Culture - Preliminary Laboratory WBC 8.7 X10^3/uL (3.6-10.0) 06/30/20 07:21 RBC 3.10 X10^6/uL (3.5-5.4) L 06/30/20 07:21 Hgb 9.2 g/dL (12.0-16.0) L D 06/30/20 07:21 Hct 27.2 % (36.0-47.0) L 06/30/20 07:21 MCV 87.9 fL (80.0-100.0) 06/30/20 07:21 MCH 29.6 pg (27.0-34.0) 06/30/20 07:21 MCHC 33.7 g/dL (33.0-35.0) 06/30/20 07:21 RDW 15.3 % (11.6-16.5) 06/30/20 07:21 Plt Count 130 X10^3/uL (150.0-450.0) L 06/30/20 07:21 MPV 7.9 fL (7.4-11.0) 06/30/20 07:21 Neut % (Auto) 80.6 % (42.0-75.0) H 06/30/20 07:21 Lymph % (Auto) 10.5 % (21.0-51.0) L 06/30/20 07:21 [place] % (Auto) 6.6 % (0.0-13.0) 06/30/20 07:21 Eos % (Auto) 2.0 % (0.9-2.9) 06/30/20 07:21 Baso % (Auto) 0.3 % (0.2-1.0) 06/30/20 07:21 Neut # (Auto) 7.0 x10^3/uL (2.2-4.8) H 06/30/20 07:21 Lymph # (Auto) 0.9 X10^3/uL (1.3-2.9) L 06/30/20 07:21 Bennett # (Auto) 0.6 x10^3/uL (0.3-0.8) 06/30/20 07:21 Eos # (Auto) 0.2 x10^3/uL (0.0-0.2) 06/30/20 07:21 Baso # (Auto) 0.0 X10^3/uL (0.0-0.1) 06/30/20 07:21 Absolute Nucleated RBC 0.0 /100WBC 06/30/20 07:21 D-Dimer 7.98 ug/ml (0.0-0.57) H* 06/28/20 10:27 Sodium 144 mmol/L (136-145) 06/30/20 07:21 Corrected Sodium 144 mmol/L (136-145) 06/30/20 07:21 Potassium 4.1 mmol/L (3.5-5.1) 06/30/20 07:21 Chloride 111 mmol/L (98-107) H 06/30/20 07:21 Carbon Dioxide 16.9 mmol/L (21-32) L 06/30/20 07:21 BUN 48 mg/dL (7-18) H 06/30/20 07:21 Creatinine 5.08 mg/dL (0.55-1.02) H 06/30/20 07:21 Est GFR (MDRD) Af Amer 11 (>60) L 06/30/20 07:21 Est GFR (MDRD) Non-Af 9 (>60) L 06/30/20 07:21 Glucose 119 mg/dL (65-99) H 06/30/20 07:21 POC Glucose (mg/dL) 108 mg/dL (65-99) H 06/30/20 05:55 Hemoglobin A1c 6.1 % 06/29/20 10:10 Calcium 7.0 mg/dL (8.5-10.1) L 06/30/20 07:21 Corrected Calcium 8.2 mg/dL (8.5-10.1) L 06/29/20 06:15 Iron 31 ug/dL (50-175) L 06/29/20 16:30 Transferrin 158 mg/dL (202-364) L 06/29/20 16:30 Ferritin 331 ng/mL (8-252) H 06/29/20 16:30 Total Bilirubin 0.90 mg/dL (0.2-1.0) 06/29/20 06:15 AST 31 Units/L (15-37) 06/29/20 06:15 ALT 17 Units/L (12-78) 06/29/20 06:15 Alkaline Phosphatase 84 Units/L (46-116) 06/29/20 06:15 Total Protein 6.4 g/dL (6.4-8.2) 06/29/20 06:15 Albumin 2.2 g/dL (3.4-5.0) L 06/29/20 06:15 Globulin 4.2 g/dL (2.5-4.5) 06/29/20 06:15 Albumin/Globulin Ratio 0.5 Ratio (1.1-2.1) L 06/29/20 06:15 Vitamin B12 536 pg/mL (193-986) 06/29/20 16:30 Folate > 20.0 ng/mL (>8.6) 06/29/20 16:30 Specimen Type Catherized urine 06/28/20 14:03 Urine Color Yellow (YELLOW) 06/28/20 14:03 Urine Appearance Clear (CLEAR) 06/28/20 14:03 Urine pH 6.0 (5.0 - 8.0) 06/28/20 14:03 Ur Specific Jud 1.010 (1.000-1.030) 06/28/20 14:03 Urine Protein 4+ (NEGATIVE) 06/28/20 14:03 Urine Glucose (UA) Negative (NEGATIVE) 06/28/20 14:03 Urine Ketones 2+ (NEGATIVE) 06/28/20 14:03 Urine Occult Blood 2+ (NEGATIVE) 06/28/20 14:03 Urine Nitrite Negative (NEGATIVE) 06/28/20 14:03 Urine Bilirubin Negative (NEGATIVE) 06/28/20 14:03 Urine Urobilinogen Normal (NORMAL) 06/28/20 14:03 Ur Leukocyte Esterase Negative (NEGATIVE) 06/28/20 14:03 Urine RBC 0-2 /HPF (0-3) 06/28/20 14:03 Urine WBC 0-2 /HPF (0-5) 06/28/20 14:03 Ur Squamous Epith Cells Few /HPF (NEGATIVE) 06/28/20 14:03 Amorphous Sediment Trace /HPF (NEGATIVE) 06/28/20 14:03 Urine Bacteria Trace /HPF (NEGATIVE) 06/28/20 14:03 Ur Culture Indicated? No/not indicated 06/28/20 14:03 Ur Random Sodium 85 mmol/L (40-220) 06/29/20 18:30 Urine Creatinine 67.74 mg/dL (29-226) 06/29/20 18:30 Influenza Type A Ag Negative-presumptive (NEGATIVE) 06/28/20 10:23 Influenza Type B Ag Negative-presumptive (NEGATIVE) 06/28/20 10:23 SARS-CoV-2 (PCR) Negative (NEGATIVE) 06/28/20 13:31 Blood Type B POSITIVE 06/29/20 11:01 Antibody Screen Negative 06/29/20 11:01 Crossmatch See Detail 06/29/20 11:01 Plan (1) Other osteonecrosis, right foot: Status: Acute (2) Foot fracture, right: Status: Acute Qualifiers: Encounter type: initial encounter Fracture type: closed Qualified Code(s): S92.901A - Unspecified fracture of right foot, initial encounter for closed fracture (3) Cellulitis of right foot: Status: Acute (4) Acute on chronic renal failure: Status: Acute Qualifiers: Acute renal failure type: unspecified Chronic kidney disease stage: unspecified stage Qualified Code(s): N17.9 - Acute kidney failure, unspecified; N18.9 - Chronic kidney disease, unspecified (5) Pneumonia: Status: Acute Qualifiers: Laterality: unspecified laterality Lung location: unspecified part of lung Pneumonia type: due to unspecified organism Qualified Code(s): J18.9 - Pneumonia, unspecified organism (6) HTN (hypertension): Status: Acute Qualifiers: Hypertension type: essential hypertension Qualified Code(s): I10 - Essential (primary) hypertension (7) HLD (hyperlipidemia): Status: Acute Qualifiers: Hyperlipidemia type: unspecified Qualified Code(s): E78.5 - Hyperlipidemia, unspecified (8) Avulsion fracture: Status: Acute
--- NOTE | 2020-06-30 09:38 | RAD ---
HISTORYF/U PNA VS EDEMA, HYPOXIA, AKISTUDYCHEST, 1 [id number]/29/2020FINDINGSPerihilar and basilar opacities are present. This could be pneumonia or pulmonary edema. Much change prior study.No pneumothorax or significant effusion.Heart size probab ly large. Vascular calcifications are present compatible with atherosclerosis. And there are calcifie d lymph nodes in the mediastinum and left hilum.Bones are unremarkable.IMPRESSION1. Unchanged pulmona ry edema or pneumonia2. CardiomegalyElectronically signed by: Facundo Josue (Jun 30, 2020 09:37:00)
[2020-06-30] MEDS: PROTONIX TAB 40 MG PO SCH (10:15)
[2020-06-30] MEDS: NORVASC TAB 5 MG PO SCH (10:26)
[2020-06-30] MEDS: SODIUM BICARBONATE TAB 650MG PO SCH ×2 (10:26→21:45)
--- NOTE | 2020-06-30 12:54 | DR.UPDATE ---
H&P Update History and Physical Update: History and Physical reviewed and patient examined. Changes noted: NO Yes with the following:will place picc. H&P Reviewed: Yes Patient was examined?: Yes Procedures (ALL) - Central Line Placement PCM.CLCO: written consent Time out performed: Yes Patient placed pm monitor/pulse ox: Yes prep: mask, gown, gloves, other Centrial line prep: chlorhexidine scrub, sterile drapes applied Local anesthsia used: lidocane 1% Ultrasound used for placement: Yes (right then left basilic and brachial id'd via u/s) Central line lumen ininserted: double (5.5fr arrowpicc at 47cm/3cm exposed. cannulated L basilic on 3rd attempt.) Post procedure: sutured in place, good blood return, all ports aspirated, flushed,capped, sterile dressing applied Post procedure xray: tip oc catheter in good position, no pneumothorax seen Patient tolerated procedure: Yes Complications: none, other (unable to threrad wire on right basilic and brachial after good blood return noted.)
--- NOTE | 2020-06-30 12:57 | RAD ---
HISTORYPICC placementSTUDYChest AP [id number]/01/2029 22 a.m.FINDINGSThere is a new left-sided PICC line with its tip in the expected position of the superior vena cava. The heart remains enlarged. Increasing perihilar interstitial and now some patchy alveolar infiltrates are identified worsening when compared with the prior examination even considering a significant difference in film technique. No pleural effusions are identified. The bony thorax is unremarkable with the exception of findings suggestive of avascular necrosis of the left humeral head.IMPRESSIONLeft PICC tip superior vena cavaCardiomegaly unchangedBilateral perihilar interstitial and now some patchy alveolar infiltrates worsening when compared to the prior examination even considering a significant difference in film techniqueSuspect avascular necrosis left humeral headElectronically signed by: SAMMY FOY (Jun 30, 2020 12:56:43)
[2020-06-30] MEDS: ZOSYN VIAL 3.375 GRAMS 3.375 G in NS 100 ML IV + SPIKE MINIBAG* 100 ML IV SCH ×2 (13:23→21:45)
[2020-06-30] MEDS: NS 1000 ML 1,000 ML IV SCH (13:23)
--- NOTE | 2020-06-30 16:28 | CT ---
HISTORYABD PAINSTUDYABDOMEN/PELVIS W/O CONCOMPARISONNone.TECHNIQUEMultiple axial images of the abdomen and pelvis were obtained from the lung bases to the pubic symphysis without the administration of IV contrast. Dose reduction techniques including Automated Exposure Control (AEC) and adjustment of mA and kV were utilized.FINDINGSMild motion artifacts. There are small bilateral pleural effusions larger on the right with associated bibasilar lung opacities. Extensive granulomatous calcifications at the mediastinum and hilum. The heart is enlarged. Cholelithiasis without evidence of cholecystitis. The liver, spleen, pancreas, adrenal glands and kidneys have a benign noncontrast appearance. Garcia catheter in situ with decompressed urinary bladder. Streak artifact limits evaluation of the pelvis. Uterus is present with multiple calcifications likely fibroids. Moderate amount of stool in the colon. Negative for bowel obstruction. The appendix is normal. Mild fat stranding in the presacral space. Normal caliber moderately atherosclerotic abdominal aorta. No pathologic adenopathy. No free air or loculated collection. Diastasis recti. Mild scattered body wall edema. Right total hip arthroplasty. There is a fracture of the left femoral head such as image 39 series 5. This may be secondary to AVN with collapse. Degenerative grade 1 anterolisthesis of L4-5 secondary to facet arthropathy.IMPRESSIONSmall pleural effusions with associated bibasilar lung opacities that may represent atelectasis or pneumonia.Cholelithiasis.Garcia catheter in situ.Nonspecific mild presacral soft tissue stranding could be secondary to inflammation of the adjacent rectosigmoid colon.Fracture of the left femoral head could be secondary to AVN. Consider MRI for further evaluation.Electronically signed by: Facundo Perry (Jun 30, 2020 10:25:09)
[2020-06-30] MEDS ORDERED: FERROUS GLUCONATE PO ONE (16:53)
[2020-06-30] MEDS: FERROUS GLUCONATE PO SCH (17:30)
[2020-06-30] MEDS: HEPARIN SODIUM INJ 5000 UNITS SC SCH (21:00)
[2020-06-30] MEDS: NEURONTIN CAP 300 MG PO SCH (21:45)
[2020-07-01] MEDS: NS 1000 ML 1,000 ML IV SCH ×2 (01:49→15:48)
[2020-07-01] MEDS: PERCOCET TAB 5/325 MG PO PRN ×2 (06:00→18:12)
[2020-07-01 06:13] LABS: BASOPHILS % (AUTO) 0.4 % (0.2-1.0); EOSINOPHILS # (AUTO) 0.2 x10^3/uL (0.0-0.2); EOSINOPHILS % (AUTO) 1.4 % (0.9-2.9); HEMATOCRIT 31.4 % (36.0-47.0); HEMOGLOBIN 10.4 g/dL (12.0-16.0); LYMPHOCYTES # (AUTO) 1.1 X10^3/uL (1.3-2.9); LYMPHOCYTES % (AUTO) 9.9 % (21.0-51.0); MEAN CORPUSCULAR HEMOGLOBIN 29.3 pg (27.0-34.0); MEAN CORPUSCULAR HGB CONC 33.2 g/dL (33.0-35.0); MEAN PLATELET VOLUME 7.6 fL (7.4-11.0); MONOCYTES # (AUTO) 0.8 x10^3/uL (0.3-0.8); MONOCYTES % (AUTO) 6.8 % (0.0-13.0); NEUTROPHILS # (AUTO) 9.3 x10^3/uL (2.2-4.8); NEUTROPHILS % (AUTO) 81.5 % (42.0-75.0); PLATELET COUNT 153 X10^3/uL (150.0-450.0); RED BLOOD COUNT 3.57 X10^6/uL (3.5-5.4); RED CELL DISTRIBUTION WIDTH 15.6 % (11.6-16.5); WHITE BLOOD COUNT 11.5 X10^3/uL (3.6-10.0)
[2020-07-01 06:16] LABS: CALCIUM 7.4 mg/dL (8.5-10.1); CARBON DIOXIDE 16.8 mmol/L (21-32); CREATININE 4.71 mg/dL (0.55-1.02)
[2020-07-01] MEDS: DUONEB 0.5 MG/3 MG (3 mL) NEB SCH ×3 (06:24→21:31)
[2020-07-01] MEDS: MAG-OX TAB PO SCH (06:34)
[2020-07-01 08:13] LABS: MAGNESIUM 1.8 mg/dL (1.7-2.9); PHOSPHORUS 4.8 mg/dL (2.6-4.7)
[2020-07-01] MEDS ORDERED: MORPHINE SULFATE INJ 2 MG INJ IVP ONE (08:35)
[2020-07-01] MEDS ORDERED: MORPHINE SULFATE INJ 2 MG INJ ONE (08:40)
--- NOTE | 2020-07-01 09:24 | VAS ---
HISTORYlt arm swellingSTUDYUPPER EXT VENOUS, UNILATERALCOMPARISONNoneFINDINGSUltrasound evaluation of the venous system of the left upper extremit y was performed from the level of the left jugular/subclavian vein down to the distal radial and ulna r veins. The venous system is widely patent with good flow and compressibility seen throughout its co urse. No sign of intraluminal thrombus is identified on this exam.IMPRESSIONNo intraluminal thrombus is identified in the venous system of the left upper extremityElectronically signed by: DARLENE CHA (O ct 2019 09:23:44)
[2020-07-01] MEDS: HEPARIN SODIUM INJ 5000 UNITS SC SCH ×2 (10:05→20:48)
[2020-07-01] MEDS: LIPITOR TAB 20 MG PO SCH (10:11)
[2020-07-01] MEDS: FOLIC ACID TAB 1 MG PO SCH (10:11)
[2020-07-01] MEDS: LOPRESSOR TAB 50 MG PO SCH ×2 (10:12→20:49)
[2020-07-01] MEDS: PROTONIX TAB 40 MG PO SCH (10:13)
[2020-07-01] MEDS: ZITHROMAX TAB 250 MG PO SCH (10:13)
[2020-07-01] MEDS: NORVASC TAB 5 MG PO SCH (10:13)
[2020-07-01] MEDS: PREDNISONE TAB 5 MG PO SCH (10:13)
[2020-07-01] MEDS: SODIUM BICARBONATE TAB 650MG PO SCH ×2 (10:13→20:50)
--- NOTE | 2020-07-01 10:17 | PCM.PROG ---
Progress Note Progress Note for Day of Date of Exam: 07/01/20 Subjective Subjective: Patient seen at bedside, overnight patient has had worsening left arm pain and swelling. She had the picc line placed yesterday in that arm. She states her arm was hurting prior to the Picc. She is not able to lift it up at all. She has been afebrile. Left arm XR done after the picc placement, did show avascular necrosis of the humerus head. CTAP was done to evaluate for renal stones which was negative for that, did show left femoral fracture 2/2 to AVN. Patient has been on chronic steroids for a while due to RA. Discussed all these findings with patient's and daughter on the phone. states patient has had falls for the past 6 months, she had a left foot and leg fractu re about 3 months ago. She is seeing [facility] She also had right hip surgery prior to that. He stated that patient was ambulating at home with a cane prior to this hospitalization. mentioned that her PCP was monitoring her renal function and that she has not seen nephrology or any discussion about dialysis. Records obtained from PCP for her last visit in February: Labs and medications reviewed. Patient's renal function then was 36/3.90, Hgb 10.4 A1C: 7.1 Labs: WBC 11.5 Hgb 10.4 Plt: 153 Na: 143 Cl: 108 BUN/Cr: 44/4.71 CO2: 16.8 PO4: 4.8 A1C: 6.1% MRI LE: diffuse soft tissue swelling with the right foot without localizing fluid collection or gas. No signs of osteomyelitis. Moderately displaced large avulsion fracture at the Achilles insertion onto post calcaneus. Chronic avulsion fracture of the post tibialis tendon with pseudoarthrosis and DDD changes. Osteonecrosis of the distal tibia, cuboid and intermediate cunieform, 1st and 5th metatarsal bones. Chronic plantar fasciitis. Mild tenosynovitis of the peroneal and post tibialis tendon. Plan: continue IV antibiotics, will get LUE U/S to rule out DVT. PT/OT as tolerated. Discussed MRI RLE findings with Dr. Coreas yesterday and stated no need for any surgical intervention at this time and to continue IV abx therapy. Patient does have multiple AVN fractures in both upper and lower ext due to being on chronic steroids. Continue pain control. Decrease IVF to 75cc/hr, monitor AM labs. Blood cultures remain negative. Past Medical Family Social History Past Med/Fam/Surg Hx: No changes since H&P Allergies: Allergies No Known Drug Allergies Allergy (Verified 06/28/20 09:35) Review of Systems ROS: No change since H&P Vital Signs and I&O's Vital Signs: Temperature 98.7 F Pulse Rate [Right Brachial] 106 Pulse Rate 74 Respiratory Rate 20 Blood Pressure [Right Arm] 151/101 Blood Pressure 137/65 O2 Sat by Pulse Oximetry 100 Intake and Output: Intake & Output 06/28/20 06/29/20 06/30/20 07/01/20 23:59 23:59 23:59 23:59 Intake Total 530 / 530 1810 / 1810 3080 / 3080 961 / 961 Output Total 1999 / 1999 700 / 700 400 / 400 Balance 530 / 530 -190 / -190 2380 / 2380 561 / 561 Physical Exam Oriented: Normal Eyes: Normal Ear: Normal Nose: Normal Respiratory: Generalized and Diminished Cardiovascular: Normal Auscultation: Bowel Sounds: Normal Tenderness: Normal Skin: Other (right foot/lower leg erythema improving, limited ROM, no open wounds or blisters. left arm swelling noted, tender, warm to touch, unable to lift arm due to pain ) Musculoskeletal: Right, Left, Arm and Foot Psychiatric: Normal Mood Description: Calm Affect: Normal Speech Pattern: Clear and Delayed Laboratory and Diagnostics Result Diagrams: 07/01/20 05:55 07/01/20 05:55 Labs: 06/28/20 10:27 Blood Blood Culture - Preliminary 06/28/20 09:50 Blood Blood Culture - Preliminary Laboratory WBC 11.5 X10^3/uL (3.6-10.0) H 07/01/20 05:55 RBC 3.57 X10^6/uL (3.5-5.4) 07/01/20 05:55 Hgb 10.4 g/dL (12.0-16.0) L 07/01/20 05:55 Hct 31.4 % (36.0-47.0) L 07/01/20 05:55 MCV 88.0 fL (80.0-100.0) 07/01/20 05:55 MCH 29.3 pg (27.0-34.0) 07/01/20 05:55 MCHC 33.2 g/dL (33.0-35.0) 07/01/20 05:55 RDW 15.6 % (11.6-16.5) 07/01/20 05:55 Plt Count 153 X10^3/uL (150.0-450.0) 07/01/20 05:55 MPV 7.6 fL (7.4-11.0) 07/01/20 05:55 Neut % (Auto) 81.5 % (42.0-75.0) H 07/01/20 05:55 Lymph % (Auto) 9.9 % (21.0-51.0) L 07/01/20 05:55 [place]ay % (Auto) 6.8 % (0.0-13.0) 07/01/20 05:55 Eos % (Auto) 1.4 % (0.9-2.9) 07/01/20 05:55 Baso % (Auto) 0.4 % (0.2-1.0) 07/01/20 05:55 Neut # (Auto) 9.3 x10^3/uL (2.2-4.8) H 07/01/20 05:55 Lymph # (Auto) 1.1 X10^3/uL (1.3-2.9) L 07/01/20 05:55 Quay # (Auto) 0.8 x10^3/uL (0.3-0.8) 07/01/20 05:55 Eos # (Auto) 0.2 x10^3/uL (0.0-0.2) 07/01/20 05:55 Baso # (Auto) 0.0 X10^3/uL (0.0-0.1) 07/01/20 05:55 Absolute Nucleated RBC 0.0 /100WBC 07/01/20 05:55 D-Dimer 7.98 ug/ml (0.0-0.57) H* 06/28/20 10:27 Sodium 143 mmol/L (136-145) 07/01/20 05:55 Corrected Sodium 144 mmol/L (136-145) 07/01/20 05:55 Potassium 4.3 mmol/L (3.5-5.1) 07/01/20 05:55 Chloride 108 mmol/L (98-107) H 07/01/20 05:55 Carbon Dioxide 16.8 mmol/L (21-32) L 07/01/20 05:55 BUN 44 mg/dL (7-18) H 07/01/20 05:55 Creatinine 4.71 mg/dL (0.55-1.02) H 07/01/20 05:55 Est GFR (MDRD) Af Amer 12 (>60) L 07/01/20 05:55 Est GFR (MDRD) Non-Af 10 (>60) L 07/01/20 05:55 Glucose 134 mg/dL (65-99) H 07/01/20 05:55 POC Glucose (mg/dL) 114 mg/dL (65-99) H 07/01/20 05:43 Hemoglobin A1c 6.1 % 06/29/20 10:10 Calcium 7.4 mg/dL (8.5-10.1) L 07/01/20 05:55 Corrected Calcium 8.2 mg/dL (8.5-10.1) L 06/29/20 06:15 Phosphorus 4.8 mg/dL (2.6-4.7) H 07/01/20 06:01 Magnesium 1.8 mg/dL (1.7-2.9) 07/01/20 06:01 Iron 31 ug/dL (50-175) L 06/29/20 16:30 Transferrin 158 mg/dL (202-364) L 06/29/20 16:30 Ferritin 331 ng/mL (8-252) H 06/29/20 16:30 Total Bilirubin 0.90 mg/dL (0.2-1.0) 06/29/20 06:15 AST 31 Units/L (15-37) 06/29/20 06:15 ALT 17 Units/L (12-78) 06/29/20 06:15 Alkaline Phosphatase 84 Units/L (46-116) 06/29/20 06:15 Total Protein 6.4 g/dL (6.4-8.2) 06/29/20 06:15 Albumin 2.2 g/dL (3.4-5.0) L 06/29/20 06:15 Globulin 4.2 g/dL (2.5-4.5) 06/29/20 06:15 Albumin/Globulin Ratio 0.5 Ratio (1.1-2.1) L 06/29/20 06:15 Vitamin B12 536 pg/mL (193-986) 06/29/20 16:30 Folate > 20.0 ng/mL (>8.6) 06/29/20 16:30 Specimen Type Catherized urine 06/28/20 14:03 Urine Color Yellow (YELLOW) 06/28/20 14:03 Urine Appearance Clear (CLEAR) 06/28/20 14:03 Urine pH 6.0 (5.0 - 8.0) 06/28/20 14:03 Ur Specific [place] 1.010 (1.000-1.030) 06/28/20 14:03 Urine Protein 4+ (NEGATIVE) 06/28/20 14:03 Urine Glucose (UA) Negative (NEGATIVE) 06/28/20 14:03 Urine Ketones 2+ (NEGATIVE) 06/28/20 14:03 Urine Occult Blood 2+ (NEGATIVE) 06/28/20 14:03 Urine Nitrite Negative (NEGATIVE) 06/28/20 14:03 Urine Bilirubin Negative (NEGATIVE) 06/28/20 14:03 Urine Urobilinogen Normal (NORMAL) 06/28/20 14:03 Ur Leukocyte Esterase Negative (NEGATIVE) 06/28/20 14:03 Urine RBC 0-2 /HPF (0-3) 06/28/20 14:03 Urine WBC 0-2 /HPF (0-5) 06/28/20 14:03 Ur Squamous Epith Cells Few /HPF (NEGATIVE) 06/28/20 14:03 Amorphous Sediment Trace /HPF (NEGATIVE) 06/28/20 14:03 Urine Bacteria Trace /HPF (NEGATIVE) 06/28/20 14:03 Ur Culture Indicated? No/not indicated 06/28/20 14:03 Ur Random Sodium 85 mmol/L (40-220) 06/29/20 18:30 Urine Creatinine 67.74 mg/dL (29-226) 06/29/20 18:30 Influenza Type A Ag Negative-presumptive (NEGATIVE) 06/28/20 10:23 Influenza Type B Ag Negative-presumptive (NEGATIVE) 06/28/20 10:23 SARS-CoV-2 (PCR) Negative (NEGATIVE) 06/28/20 13:31 Blood Type B POSITIVE 06/29/20 11:01 Antibody Screen Negative 06/29/20 11:01 Crossmatch See Detail 06/29/20 11:01 Plan (1) Chronic fracture: Status: Acute (2) Osteonecrosis: Status: Acute (3) Other osteonecrosis, right foot: Status: Acute (4) Foot fracture, right: Status: Acute Qualifiers: Encounter type: initial encounter Fracture type: closed Qualified Code(s): S92.901A - Unspecified fracture of right foot, initial encounter for closed fracture (5) Cellulitis of right foot: Status: Acute (6) Acute on chronic renal failure: Status: Acute Qualifiers: Acute renal failure type: unspecified Chronic kidney disease stage: unspecified stage Qualified Code(s): N17.9 - Acute kidney failure, unspecified; N18.9 - Chronic kidney disease, unspecified (7) Pneumonia: Status: Acute Qualifiers: Laterality: unspecified laterality Lung location: unspecified part of lung Pneumonia type: due to unspecified organism Qualified Code(s): J18.9 - Pneumonia, unspecified organism (8) HTN (hypertension): Status: Acute Qualifiers: Hypertension type: essential hypertension Qualified Code(s): I10 - Essential (primary) hypertension (9) HLD (hyperlipidemia): Status: Acute Qualifiers: Hyperlipidemia type: unspecified Qualified Code(s): E78.5 - Hyperlipidemia, unspecified (10) Avulsion fracture: Status: Acute
[2020-07-01] MEDS: ZOSYN VIAL 3.375 GRAMS 3.375 G in NS 100 ML IV + SPIKE MINIBAG* 100 ML IV SCH (10:57)
[2020-07-01] MEDS ORDERED: ZANAFLEX ONE (11:14)
[2020-07-01] MEDS: ZANAFLEX PO SCH (11:29)
[2020-07-01] MEDS ORDERED: LEVAQUIN TAB 750 MG PO NR (13:00)
[2020-07-01] MEDS: FERROUS GLUCONATE PO SCH (18:12)
[2020-07-01] MEDS: NEURONTIN CAP 300 MG PO SCH (20:49)
[2020-07-02] MEDS: ZANAFLEX PO SCH ×3 (02:05→22:56)
[2020-07-02] MEDS: PERCOCET TAB 5/325 MG PO PRN ×2 (04:03→21:28)
[2020-07-02] MEDS: NS 1000 ML 1,000 ML IV SCH ×2 (04:19→22:56)
[2020-07-02 06:20] LABS: BASOPHILS % (AUTO) 0.4 % (0.2-1.0); EOSINOPHILS # (AUTO) 0.1 x10^3/uL (0.0-0.2); EOSINOPHILS % (AUTO) 1.4 % (0.9-2.9); HEMATOCRIT 26.2 % (36.0-47.0); HEMOGLOBIN 8.8 g/dL (12.0-16.0); LYMPHOCYTES # (AUTO) 0.8 X10^3/uL (1.3-2.9); LYMPHOCYTES % (AUTO) 8.5 % (21.0-51.0); MEAN CORPUSCULAR HEMOGLOBIN 29.8 pg (27.0-34.0); MEAN CORPUSCULAR HGB CONC 33.6 g/dL (33.0-35.0); MEAN CORPUSCULAR VOLUME 88.6 fL (80.0-100.0); MONOCYTES # (AUTO) 0.6 x10^3/uL (0.3-0.8); MONOCYTES % (AUTO) 6.5 % (0.0-13.0); NEUTROPHILS # (AUTO) 7.9 x10^3/uL (2.2-4.8); NEUTROPHILS % (AUTO) 83.2 % (42.0-75.0); PLATELET COUNT 142 X10^3/uL (150.0-450.0); RED BLOOD COUNT 2.95 X10^6/uL (3.5-5.4); RED CELL DISTRIBUTION WIDTH 15.5 % (11.6-16.5); WHITE BLOOD COUNT 9.5 X10^3/uL (3.6-10.0)
[2020-07-02] MEDS: DUONEB 0.5 MG/3 MG (3 mL) NEB SCH ×3 (06:35→22:19)
[2020-07-02 06:39] LABS: BLOOD UREA NITROGEN 44 mg/dL (7-18); CALCIUM 6.8 mg/dL (8.5-10.1); CARBON DIOXIDE 17.9 mmol/L (21-32); CHLORIDE 109 mmol/L (98-107); CREATININE 4.45 mg/dL (0.55-1.02); SODIUM 143 mmol/L (136-145); eGFR NON BLACK RACES 11 (>60)
[2020-07-02] MEDS: MAG-OX TAB PO SCH (06:41)
[2020-07-02] MEDS: LIPITOR TAB 20 MG PO SCH (10:00)
[2020-07-02] MEDS: FOLIC ACID TAB 1 MG PO SCH (10:00)
[2020-07-02] MEDS: HEPARIN SODIUM INJ 5000 UNITS SC SCH ×2 (10:00→21:26)
[2020-07-02] MEDS: SODIUM BICARBONATE TAB 650MG PO SCH ×2 (10:00→21:27)
[2020-07-02] MEDS: PREDNISONE TAB 5 MG PO SCH (10:00)
[2020-07-02] MEDS: LOPRESSOR TAB 50 MG PO SCH ×2 (10:00→21:27)
[2020-07-02] MEDS: PROTONIX TAB 40 MG PO SCH (10:00)
[2020-07-02] MEDS: NORVASC TAB 5 MG PO SCH (10:00)
--- NOTE | 2020-07-02 11:56 | RAD ---
KUBHistory: Abdominal pain, nausea, rule out SBOComparison: NoneFindings: Visualized bowel gas pattern is nonobstructive. No free air pneumatosis is identified. No definite pathologic calcifications seen. Right hip arthroplasty noted. Imaged osseous structures otherwise grossly intact.Impression: Nonobstructive bowel gas pattern.Electronically signed by: VIDHI WALL (Jul 02, 2020 11:56:27)
--- NOTE | 2020-07-02 11:56 | RAD ---
HISTORYPain and swelling renal failureSTUDYLeft forearm two viewsCOMPARISONNoneFINDINGSIntact radius and ulna without evidence for fracture or osteolytic involvement. Extensive arterial calcification noted in the forearm consistent with chronic renal disease. Nonspecific osteopenia.IMPRESSIONNo significant osseous lesion demonstrated.Electronically signed by: ORTIZ GARSIA (Jul 02, 2020 11:56:12)
--- NOTE | 2020-07-02 12:42 | PCM.PROG ---
Progress Note Progress Note for Day of Date of Exam: 07/02/20 Subjective Subjective: Patient seen at bedside, no acute overnight events. She still has left forearm pain and unable to move it. Patient tearful during visit and wondering why her daughter cannot come visit her. She reports decreased oral intake. She states she can only eat soft foods and wants her medications cr ushes. She states that's how she was eating at home. LUE U/S was negative for thrombus. Yesterday, her PICC line was not used due to severe arm pain and swelling. Her arm had been propped up and warm compresses were applied. She has not had a BM since admission. Labs: Hgb 8.8 BUN/Cr: 44/4.45 Plan: will get Left arm XR to rule out any fracture, get KUB to rule out SBO, switch to soft diet, crush medications. Add stool softners, continue renal dose levaquin. Her right foot cellulitis is improved. Patient will need rehab placement as per PT/OT recommendations. Monitor AM labs. Past Medical Family Social History Past Med/Fam/Surg Hx: No changes since H&P Allergies: Allergies No Known Drug Allergies Allergy (Verified 06/28/20 09:35) Review of Systems ROS: No change since H&P Vital Signs and I&O's Vital Signs: Temperature 99.3 F Pulse Rate [Right Brachial] 106 Pulse Rate 75 Respiratory Rate 20 Blood Pressure [Right Arm] 188/86 Blood Pressure 137/65 O2 Sat by Pulse Oximetry 96 Intake and Output: Intake & Output 06/29/20 06/30/20 07/01/20 07/02/20 23:59 23:59 23:59 23:59 Intake Total 1810 / 1810 3080 / 3080 2132 / 2132 197 / 197 Output Total 1999 700 / 700 1150 / 1150 300 / 300 Balance -190 / -190 2380 / 2380 982 / 982 -103 / -103 Physical Exam Oriented: Unable to test Eyes: Normal Ear: Normal Nose: Normal Respiratory: Generalized and Diminished Cardiovascular: Normal Auscultation: Bowel Sounds: Normal Tenderness: Normal Skin: Other (right foot/lower leg erythema improving, limited ROM, no open wounds or blisters. left arm swelling slightly better, tender, warm to touch, unable to lift arm due to pain ) Musculoskeletal: Right, Left, Arm and Foot Psychiatric: Normal Mood Description: Calm Affect: Anxious Speech Pattern: Delayed Laboratory and Diagnostics Result Diagrams: 07/02/20 05:40 07/02/20 05:40 Labs: 06/28/20 10:27 Blood Blood Culture - Preliminary 06/28/20 09:50 Blood Blood Culture - Preliminary Laboratory WBC 9.5 X10^3/uL (3.6-10.0) 07/02/20 05:40 RBC 2.95 X10^6/uL (3.5-5.4) L 07/02/20 05:40 Hgb 8.8 g/dL (12.0-16.0) L 07/02/20 05:40 Hct 26.2 % (36.0-47.0) L 07/02/20 05:40 MCV 88.6 fL (80.0-100.0) 07/02/20 05:40 MCH 29.8 pg (27.0-34.0) 07/02/20 05:40 MCHC 33.6 g/dL (33.0-35.0) 07/02/20 05:40 RDW 15.5 % (11.6-16.5) 07/02/20 05:40 Plt Count 142 X10^3/uL (150.0-450.0) L 07/02/20 05:40 MPV 8.0 fL (7.4-11.0) 07/02/20 05:40 Neut % (Auto) 83.2 % (42.0-75.0) H 07/02/20 05:40 Lymph % (Auto) 8.5 % (21.0-51.0) L 07/02/20 05:40 [place] % (Auto) 6.5 % (0.0-13.0) 07/02/20 05:40 Eos % (Auto) 1.4 % (0.9-2.9) 07/02/20 05:40 Baso % (Auto) 0.4 % (0.2-1.0) 07/02/20 05:40 Neut # (Auto) 7.9 x10^3/uL (2.2-4.8) H 07/02/20 05:40 Lymph # (Auto) 0.8 X10^3/uL (1.3-2.9) L 07/02/20 05:40 [place] # (Auto) 0.6 x10^3/uL (0.3-0.8) 07/02/20 05:40 Eos # (Auto) 0.1 x10^3/uL (0.0-0.2) 07/02/20 05:40 Baso # (Auto) 0.0 X10^3/uL (0.0-0.1) 07/02/20 05:40 Absolute Nucleated RBC 0.0 /100WBC 07/02/20 05:40 D-Dimer 7.98 ug/ml (0.0-0.57) H* 06/28/20 10:27 Sodium 143 mmol/L (136-145) 07/02/20 05:40 Corrected Sodium TNP 07/02/20 05:40 Potassium 4.3 mmol/L (3.5-5.1) 07/02/20 05:40 Chloride 109 mmol/L (98-107) H 07/02/20 05:40 Carbon Dioxide 17.9 mmol/L (21-32) L 07/02/20 05:40 BUN 44 mg/dL (7-18) H 07/02/20 05:40 Creatinine 4.45 mg/dL (0.55-1.02) H 07/02/20 05:40 Est GFR (MDRD) Af Amer 13 (>60) L 07/02/20 05:40 Est GFR (MDRD) Non-Af 11 (>60) L 07/02/20 05:40 Glucose 104 mg/dL (65-99) H 07/02/20 05:40 POC Glucose (mg/dL) 106 mg/dL (65-99) H 07/02/20 11:09 Hemoglobin A1c 6.1 % 06/29/20 10:10 Calcium 6.8 mg/dL (8.5-10.1) L 07/02/20 05:40 Corrected Calcium 8.2 mg/dL (8.5-10.1) L 06/29/20 06:15 Phosphorus 4.8 mg/dL (2.6-4.7) H 07/01/20 06:01 Magnesium 1.8 mg/dL (1.7-2.9) 07/01/20 06:01 Iron 31 ug/dL (50-175) L 06/29/20 16:30 Transferrin 158 mg/dL (202-364) L 06/29/20 16:30 Ferritin 331 ng/mL (8-252) H 06/29/20 16:30 Total Bilirubin 0.90 mg/dL (0.2-1.0) 06/29/20 06:15 AST 31 Units/L (15-37) 06/29/20 06:15 ALT 17 Units/L (12-78) 06/29/20 06:15 Alkaline Phosphatase 84 Units/L (46-116) 06/29/20 06:15 Total Protein 6.4 g/dL (6.4-8.2) 06/29/20 06:15 Albumin 2.2 g/dL (3.4-5.0) L 06/29/20 06:15 Globulin 4.2 g/dL (2.5-4.5) 06/29/20 06:15 Albumin/Globulin Ratio 0.5 Ratio (1.1-2.1) L 06/29/20 06:15 Vitamin B12 536 pg/mL (193-986) 06/29/20 16:30 Folate > 20.0 ng/mL (>8.6) 06/29/20 16:30 Specimen Type Catherized urine 06/28/20 14:03 Urine Color Yellow (YELLOW) 06/28/20 14:03 Urine Appearance Clear (CLEAR) 06/28/20 14:03 Urine pH 6.0 (5.0 - 8.0) 06/28/20 14:03 Ur Specific [place] 1.010 (1.000-1.030) 06/28/20 14:03 Urine Protein 4+ (NEGATIVE) 06/28/20 14:03 Urine Glucose (UA) Negative (NEGATIVE) 06/28/20 14:03 Urine Ketones 2+ (NEGATIVE) 06/28/20 14:03 Urine Occult Blood 2+ (NEGATIVE) 06/28/20 14:03 Urine Nitrite Negative (NEGATIVE) 06/28/20 14:03 Urine Bilirubin Negative (NEGATIVE) 06/28/20 14:03 Urine Urobilinogen Normal (NORMAL) 06/28/20 14:03 Ur Leukocyte Esterase Negative (NEGATIVE) 06/28/20 14:03 Urine RBC 0-2 /HPF (0-3) 06/28/20 14:03 Urine WBC 0-2 /HPF (0-5) 06/28/20 14:03 Ur Squamous Epith Cells Few /HPF (NEGATIVE) 06/28/20 14:03 Amorphous Sediment Trace /HPF (NEGATIVE) 06/28/20 14:03 Urine Bacteria Trace /HPF (NEGATIVE) 06/28/20 14:03 Ur Culture Indicated? No/not indicated 06/28/20 14:03 Ur Random Sodium 85 mmol/L (40-220) 06/29/20 18:30 Urine Creatinine 67.74 mg/dL (29-226) 06/29/20 18:30 Influenza Type A Ag Negative-presumptive (NEGATIVE) 06/28/20 10:23 Influenza Type B Ag Negative-presumptive (NEGATIVE) 06/28/20 10:23 SARS-CoV-2 (PCR) Negative (NEGATIVE) 06/28/20 13:31 Blood Type B POSITIVE 06/29/20 11:01 Antibody Screen Negative 06/29/20 11:01 Crossmatch See Detail 06/29/20 11:01 Plan (1) Chronic fracture: Status: Acute (2) Osteonecrosis: Status: Acute (3) Other osteonecrosis, right foot: Status: Acute (4) Foot fracture, right: Status: Acute Qualifiers: Encounter type: initial encounter Fracture type: closed Qualified Code(s): S92.901A - Unspecified fracture of right foot, initial encounter for closed fracture (5) Cellulitis of right foot: Status: Acute (6) Acute on chronic renal failure: Status: Acute Qualifiers: Acute renal failure type: unspecified Chronic kidney disease stage: unspecified stage Qualified Code(s): N17.9 - Acute kidney failure, unspecified; N18.9 - Chronic kidney disease, unspecified (7) Pneumonia: Status: Acute Qualifiers: Laterality: unspecified laterality Lung location: unspecified part of lung Pneumonia type: due to unspecified organism Qualified Code(s): J18.9 - Pneumonia, unspecified organism (8) HTN (hypertension): Status: Acute Qualifiers: Hypertension type: essential hypertension Qualified Code(s): I10 - Essential (primary) hypertension (9) HLD (hyperlipidemia): Status: Acute Qualifiers: Hyperlipidemia type: unspecified Qualified Code(s): E78.5 - Hyperlipidemia, unspecified (10) Avulsion fracture: Status: Acute (11) Anemia: Status: Acute Qualifiers: Anemia type: iron deficiency Iron deficiency anemia type: other iron deficiency Qualified Code(s): D50.8 - Other iron deficiency anemias (12) LEIF (iron deficiency anemia): Status: Acute Qualifiers: Iron deficiency anemia type: unspecified iron deficiency Qualified Code(s): D50.9 - Iron deficiency anemia, unspecified
--- NOTE | 2020-07-02 15:54 | CT ---
HISTORYConfusion, AMSSTUDYCT HEAD WITHOUT CONTRASTCOMPARISONNoneTECHNIQUEAxial CT of the head is performed from the base of the skull through the vertex WITHOUT contrast . Multiplaner reformats are generated from the original axial data.FINDINGSThere is no evidence of an acute intracranial hemorrhage or extra-axial fluid collection. There is no mass effect, midline shift or evidence of cerebral edema. The ventricular size is normal. Cortical choi-white matter differentiation is maintained without sulcal effacement. There is no acute stage, large artery territorial infarction. Atherosclerotic calcifications are demonstrated within the cavernous ICA segments and bilateral vertebral arteries. Mild degenerative periventricular white matter hypoattenuation and patchy subcortical white matter hypodensities are most likely related to chronic microangiopathy. The imaged paranasal sinuses and mastoids are clear. The calvarium is intact.IMPRESSIONNo acute intracranial abnormalities.Radiation dose reduction was achieved through individualized adjustment of kVP and/or mA, through adaptive statistical iterative reconstruction, and/or through automated tube current modulation.Electronically signed by: REINA LAMAS (Jul 02, 2020 15:53:32)
[2020-07-02] MEDS: COLACE CAP 100 MG PO SCH ×2 (16:45→21:26)
[2020-07-02] MEDS: FERROUS GLUCONATE PO SCH (17:13)
[2020-07-02] MEDS: NEURONTIN CAP 300 MG PO SCH (21:27)
[2020-07-03 05:08] LABS: BASOPHILS % (AUTO) 0.4 % (0.2-1.0); EOSINOPHILS # (AUTO) 0.1 x10^3/uL (0.0-0.2); EOSINOPHILS % (AUTO) 1.2 % (0.9-2.9); HEMATOCRIT 24.6 % (36.0-47.0); LYMPHOCYTES # (AUTO) 0.7 X10^3/uL (1.3-2.9); LYMPHOCYTES % (AUTO) 9.4 % (21.0-51.0); MEAN CORPUSCULAR HGB CONC 32.6 g/dL (33.0-35.0); MEAN PLATELET VOLUME 8.1 fL (7.4-11.0); MONOCYTES # (AUTO) 0.6 x10^3/uL (0.3-0.8); MONOCYTES % (AUTO) 7.1 % (0.0-13.0); NEUTROPHILS # (AUTO) 6.5 x10^3/uL (2.2-4.8); NEUTROPHILS % (AUTO) 81.9 % (42.0-75.0); PLATELET COUNT 148 X10^3/uL (150.0-450.0); RED BLOOD COUNT 2.76 X10^6/uL (3.5-5.4); RED CELL DISTRIBUTION WIDTH 15.3 % (11.6-16.5); WHITE BLOOD COUNT 7.9 X10^3/uL (3.6-10.0)
[2020-07-03] MEDS: DUONEB 0.5 MG/3 MG (3 mL) NEB SCH ×3 (05:29→21:10)
[2020-07-03] MEDS: MAG-OX TAB PO SCH (06:04)
[2020-07-03] MEDS ORDERED: LEVAQUIN TAB 500 MG PO SCH (09:00)
[2020-07-03] MEDS: COLACE CAP 100 MG PO SCH ×2 (09:25→20:53)
[2020-07-03] MEDS: FOLIC ACID TAB 1 MG PO SCH (09:25)
[2020-07-03] MEDS: NS 1000 ML 1,000 ML IV SCH ×2 (09:26→18:28)
[2020-07-03] MEDS: HEPARIN SODIUM INJ 5000 UNITS SC SCH ×2 (09:26→20:55)
[2020-07-03] MEDS: LOPRESSOR TAB 50 MG PO SCH ×2 (09:27→20:54)
[2020-07-03] MEDS: LIPITOR TAB 20 MG PO SCH (09:27)
[2020-07-03] MEDS: NORVASC TAB 5 MG PO SCH (09:28)
[2020-07-03] MEDS: PROTONIX TAB 40 MG PO SCH (09:29)
[2020-07-03] MEDS: PREDNISONE TAB 5 MG PO SCH (09:29)
[2020-07-03] MEDS: SODIUM BICARBONATE TAB 650MG PO SCH ×2 (09:29→20:54)
[2020-07-03 09:49] LABS: BLOOD UREA NITROGEN 47 mg/dL (7-18); CALCIUM 6.6 mg/dL (8.5-10.1); CARBON DIOXIDE 19.9 mmol/L (21-32); CHLORIDE 112 mmol/L (98-107); CREATININE 4.55 mg/dL (0.55-1.02); SODIUM 143 mmol/L (136-145); eGFR NON BLACK RACES 10 (>60)
[2020-07-03 10:04] LABS: ALANINE AMINOTRANSFERASE 12 Units/L (12-78); ALBUMIN 1.8 g/dL (3.4-5.0); ALKALINE PHOSPHATASE 85 Units/L (46-116); ASPARTATE AMINO TRANSFERASE 17 Units/L (15-37); COR CA(FOR HYPOALB) 8.4 mg/dL (8.5-10.1); TOTAL PROTEIN 6.3 g/dL (6.4-8.2)
--- NOTE | 2020-07-03 11:10 | PCM.PROG ---
Progress Note Progress Note for Day of Date of Exam: 07/03/20 Subjective Subjective: Patient seen at bedside, no acute events overnight. Patient states she feels slightly better. Her left arm is not as swollen today, she is able to move it a little bit. XR yesterday did not show any fracture. PICC line was not used due to pain and swelling in that arm. Patient's arm has been kept on the pillow. She reports appetite is better, she can eat soft foods and wants her medications crushed. She has not had BM yet. Yesterday, patient was having intermittent confusion and worsening of dementia, CT-head was done which was negative for any acute process. Patient is alert and oriented this AM, answering questions appropriately. Labs: Hgb 8 BUN/Cr: 47/4.55 Labs: Hgb 8.8 BUN/Cr: 44/4.45 Blood Cx (-) Plan: will get a PICC line XR to eval position, continue with oral medications for now, patient has been getting oral levaquin every 48H due to impaired renal function. Patient's right foot looks better, limited ROM. Patient will need rehab for further management. Will discuss with CM and family tomorrow. Dr. Coreas should be seeing the patient tomorrow to make any further recommendations. Monitor AM labs. Past Medical Family Social History Past Med/Fam/Surg Hx: No changes since H&P Allergies: Allergies No Known Drug Allergies Allergy (Verified 06/28/20 09:35) Review of Systems ROS: No change since H&P Vital Signs and I&O's Vital Signs: Temperature 98.8 F Pulse Rate [Right Brachial] 91 Pulse Rate 75 Respiratory Rate 18 Blood Pressure [Right Arm] 163/72 Blood Pressure 137/65 O2 Sat by Pulse Oximetry 98 Intake and Output: Intake & Output 06/30/20 07/01/20 07/02/20 07/03/20 23:59 23:59 23:59 23:59 Intake Total 3080 / 3080 2132 / 2132 687 / 687 Output Total 700 / 700 1150 / 1150 1250 / 1250 200 / 200 Balance 2380 / 2380 982 / 982 -563 / -563 -190 / -190 Physical Exam Oriented: Normal Eyes: Normal Ear: Normal Nose: Normal Respiratory: Generalized and Diminished Cardiovascular: Normal Auscultation: Bowel Sounds: Normal Tenderness: Normal Skin: Other (right foot/lower leg erythema improving, limited ROM, no open wounds or blisters. left arm swelling better, some improvement in ROM ) Musculoskeletal: Right, Left, Arm and Foot Psychiatric: Normal Mood Description: Calm Affect: Anxious Speech Pattern: Appropriate and Delayed Laboratory and Diagnostics Result Diagrams: 07/03/20 04:10 07/03/20 04:10 Labs: 06/28/20 10:27 Blood Blood Culture - Preliminary 06/28/20 09:50 Blood Blood Culture - Preliminary Laboratory WBC 7.9 X10^3/uL (3.6-10.0) 07/03/20 04:10 RBC 2.76 X10^6/uL (3.5-5.4) L 07/03/20 04:10 Hgb 8.0 g/dL (12.0-16.0) L 07/03/20 04:10 Hct 24.6 % (36.0-47.0) L 07/03/20 04:10 MCV 89.0 fL (80.0-100.0) 07/03/20 04:10 MCH 29.0 pg (27.0-34.0) 07/03/20 04:10 MCHC 32.6 g/dL (33.0-35.0) L 07/03/20 04:10 RDW 15.3 % (11.6-16.5) 07/03/20 04:10 Plt Count 148 X10^3/uL (150.0-450.0) L 07/03/20 04:10 MPV 8.1 fL (7.4-11.0) 07/03/20 04:10 Neut % (Auto) 81.9 % (42.0-75.0) H 07/03/20 04:10 Lymph % (Auto) 9.4 % (21.0-51.0) L 07/03/20 04:10 [place] % (Auto) 7.1 % (0.0-13.0) 07/03/20 04:10 Eos % (Auto) 1.2 % (0.9-2.9) 07/03/20 04:10 Baso % (Auto) 0.4 % (0.2-1.0) 07/03/20 04:10 Neut # (Auto) 6.5 x10^3/uL (2.2-4.8) H 07/03/20 04:10 Lymph # (Auto) 0.7 X10^3/uL (1.3-2.9) L 07/03/20 04:10 [place] # (Auto) 0.6 x10^3/uL (0.3-0.8) 07/03/20 04:10 Eos # (Auto) 0.1 x10^3/uL (0.0-0.2) 07/03/20 04:10 Baso # (Auto) 0.0 X10^3/uL (0.0-0.1) 07/03/20 04:10 Absolute Nucleated RBC 0.0 /100WBC 07/03/20 04:10 D-Dimer 7.98 ug/ml (0.0-0.57) H* 06/28/20 10:27 Sodium 143 mmol/L (136-145) 07/03/20 04:10 Sodium Cancelled 07/03/20 04:10 Corrected Sodium Cancelled 07/03/20 04:10 Corrected Sodium TNP 07/03/20 04:10 Potassium 4.4 mmol/L (3.5-5.1) 07/03/20 04:10 Potassium Cancelled 07/03/20 04:10 Chloride 112 mmol/L (98-107) H 07/03/20 04:10 Chloride Cancelled 07/03/20 04:10 Carbon Dioxide 19.9 mmol/L (21-32) L 07/03/20 04:10 Carbon Dioxide Cancelled 07/03/20 04:10 BUN 47 mg/dL (7-18) H 07/03/20 04:10 BUN Cancelled 07/03/20 04:10 Creatinine 4.55 mg/dL (0.55-1.02) H 07/03/20 04:10 Creatinine Cancelled 07/03/20 04:10 Est GFR (MDRD) Af Amer 13 (>60) L 07/03/20 04:10 Est GFR (MDRD) Af Amer Cancelled 07/03/20 04:10 Est GFR (MDRD) Non-Af 10 (>60) L 07/03/20 04:10 Est GFR (MDRD) Non-Af Cancelled 07/03/20 04:10 Glucose 105 mg/dL (65-99) H 07/03/20 04:10 Glucose Cancelled 07/03/20 04:10 POC Glucose (mg/dL) 85 mg/dL (65-99) 07/03/20 05:44 Hemoglobin A1c 6.1 % 06/29/20 10:10 Calcium 6.6 mg/dL (8.5-10.1) L 07/03/20 04:10 Calcium Cancelled 07/03/20 04:10 Corrected Calcium 8.4 mg/dL (8.5-10.1) L 07/03/20 04:10 Phosphorus 4.8 mg/dL (2.6-4.7) H 07/01/20 06:01 Magnesium 1.8 mg/dL (1.7-2.9) 07/01/20 06:01 Iron 31 ug/dL (50-175) L 06/29/20 16:30 Transferrin 158 mg/dL (202-364) L 06/29/20 16:30 Ferritin 331 ng/mL (8-252) H 06/29/20 16:30 Total Bilirubin 0.50 mg/dL (0.2-1.0) 07/03/20 04:10 AST 17 Units/L (15-37) 07/03/20 04:10 ALT 12 Units/L (12-78) 07/03/20 04:10 Alkaline Phosphatase 85 Units/L (46-116) 07/03/20 04:10 Total Protein 6.3 g/dL (6.4-8.2) L 07/03/20 04:10 Albumin 1.8 g/dL (3.4-5.0) L 07/03/20 04:10 Globulin 4.5 g/dL (2.5-4.5) 07/03/20 04:10 Albumin/Globulin Ratio 0.4 Ratio (1.1-2.1) L 07/03/20 04:10 Vitamin B12 536 pg/mL (193-986) 06/29/20 16:30 Folate > 20.0 ng/mL (>8.6) 06/29/20 16:30 Specimen Type Catherized urine 06/28/20 14:03 Urine Color Yellow (YELLOW) 06/28/20 14:03 Urine Appearance Clear (CLEAR) 06/28/20 14:03 Urine pH 6.0 (5.0 - 8.0) 06/28/20 14:03 Ur Specific [place] 1.010 (1.000-1.030) 06/28/20 14:03 Urine Protein 4+ (NEGATIVE) 06/28/20 14:03 Urine Glucose (UA) Negative (NEGATIVE) 06/28/20 14:03 Urine Ketones 2+ (NEGATIVE) 06/28/20 14:03 Urine Occult Blood 2+ (NEGATIVE) 06/28/20 14:03 Urine Nitrite Negative (NEGATIVE) 06/28/20 14:03 Urine Bilirubin Negative (NEGATIVE) 06/28/20 14:03 Urine Urobilinogen Normal (NORMAL) 06/28/20 14:03 Ur Leukocyte Esterase Negative (NEGATIVE) 06/28/20 14:03 Urine RBC 0-2 /HPF (0-3) 06/28/20 14:03 Urine WBC 0-2 /HPF (0-5) 06/28/20 14:03 Ur Squamous Epith Cells Few /HPF (NEGATIVE) 06/28/20 14:03 Amorphous Sediment Trace /HPF (NEGATIVE) 06/28/20 14:03 Urine Bacteria Trace /HPF (NEGATIVE) 06/28/20 14:03 Ur Culture Indicated? No/not indicated 06/28/20 14:03 Ur Random Sodium 85 mmol/L (40-220) 06/29/20 18:30 Urine Creatinine 67.74 mg/dL (29-226) 06/29/20 18:30 Influenza Type A Ag Negative-presumptive (NEGATIVE) 06/28/20 10:23 Influenza Type B Ag Negative-presumptive (NEGATIVE) 06/28/20 10:23 SARS-CoV-2 (PCR) Negative (NEGATIVE) 06/28/20 13:31 Blood Type B POSITIVE 06/29/20 11:01 Antibody Screen Negative 06/29/20 11:01 Crossmatch See Detail 06/29/20 11:01 Plan (1) Chronic fracture: Status: Acute (2) Osteonecrosis: Status: Acute (3) Other osteonecrosis, right foot: Status: Acute (4) Foot fracture, right: Status: Acute Qualifiers: Encounter type: initial encounter Fracture type: closed Qualified Code(s): S92.901A - Unspecified fracture of right foot, initial encounter for closed fracture (5) Cellulitis of right foot: Status: Acute (6) Acute on chronic renal failure: Status: Acute Qualifiers: Acute renal failure type: unspecified Chronic kidney disease stage: unspecified stage Qualified Code(s): N17.9 - Acute kidney failure, unspecified; N18.9 - Chronic kidney disease, unspecified (7) Pneumonia: Status: Acute Qualifiers: Laterality: unspecified laterality Lung location: unspecified part of lung Pneumonia type: due to unspecified organism Qualified Code(s): J18.9 - Pn eumonia, unspecified organism (8) HTN (hypertension): Status: Acute Qualifiers: Hypertension type: essential hypertension Qualified Code(s): I10 - Essential (primary) hypertension (9) HLD (hyperlipidemia): Status: Acute Qualifiers: Hyperlipidemia type: unspecified Qualified Code(s): E78.5 - Hyperlipidemia, unspecified (10) Avulsion fracture: Status: Acute (11) Anemia: Status: Acute Qualifiers: Anemia type: iron deficiency Iron deficiency anemia type: other iron deficiency Qualified Code(s): D50.8 - Other iron deficiency anemias (12) LEIF (iron deficiency anemia): Status: Acute Qualifiers: Iron deficiency anemia type: unspecified iron deficiency Qualified Code(s): D50.9 - Iron deficiency anemia, unspecified
[2020-07-03] MEDS: ZANAFLEX PO SCH ×2 (11:13→22:13)
[2020-07-03] MEDS ORDERED: TYLENOL 325 MG TAB PO PRN (11:33)
[2020-07-03] MEDS ORDERED: TYLENOL 325 MG TAB PO ONE (11:46)
--- NOTE | 2020-07-03 12:42 | RAD ---
HISTORYpicc line checkSTUDYPORT/PICC CHECKCOMPARISONOctober 2019Portable chest x-rayFINDINGSCardiac silhouette is enlarged. Left-sided PICC line is position within the SVC. There is mild background interstitial prominence. Numerous calcified mediastinal and hilar lymph nodes are observed. No accumulating pleural fluid collections are demonstrated. Chronic AVN noted within the bilateral humeral heads.IMPRESSIONThe left-sided PICC line appears adequately position with catheter terminating in the SVCCardiomegaly with accentuation of the central pulmonary vasculatureInterstitial prominence with Valery B-lines and ground-glass haziness of the lung bases which may be associated with pulmonary edema, atypical pneumonia or combination of the aboveNumerous calcified lymph nodes which may be related to old granulomatous disease process, treated sarcoid disease or other treated lymphoproliferative disorder.Electronically signed by: REINA LAMAS (Jul 03, 2020 12:42:00)
[2020-07-03] MEDS: PERCOCET TAB 5/325 MG PO PRN ×2 (14:02→21:05)
[2020-07-03] MEDS: MIRALAX POWDER (1 DOSE 17 G) PO SCH (14:15)
[2020-07-03] MEDS: FERROUS GLUCONATE PO SCH (17:27)
[2020-07-03] MEDS: NEURONTIN CAP 300 MG PO SCH (20:54)
[2020-07-03] MEDS: ZOSYN VIAL 3.375 GRAMS 3.375 G in NS 100 ML IV + SPIKE MINIBAG* 100 ML IV SCH (20:54)
[2020-07-04] MEDS: PERCOCET TAB 5/325 MG PO PRN ×2 (04:12→20:39)
[2020-07-04] MEDS: DUONEB 0.5 MG/3 MG (3 mL) NEB SCH ×3 (05:00→21:25)
[2020-07-04] MEDS: MAG-OX TAB PO SCH (06:03)
--- NOTE | 2020-07-04 06:05 | RAD ---
HISTORYPNEUMONIASTUDYCHEST, 1 [id number]/2019TECHNIQUEAP view of the chestFINBut[facility] P[facility] in good position. Cardiac and mediastinal contours are stable. Numerous calcified mediastinal hilar lymph nodes again noted. Unchanged bibasilar hazy and interstitial opacities. No definite pleural effusion or pneumothorax.IMPRESSIONNo significant change in bibasilar hazy and interstitial opacities. This is consistent with pneumonia in the right clinical setting.Electronically signed by: Facundo Perry (Jul 04, 2020 06:05:31)
[2020-07-04 06:09] LABS: BASOPHILS % (AUTO) 0.4 % (0.2-1.0); EOSINOPHILS # (AUTO) 0.1 x10^3/uL (0.0-0.2); EOSINOPHILS % (AUTO) 1.3 % (0.9-2.9); HEMATOCRIT 27.5 % (36.0-47.0); HEMOGLOBIN 9.1 g/dL (12.0-16.0); LYMPHOCYTES # (AUTO) 0.9 X10^3/uL (1.3-2.9); MEAN CORPUSCULAR HEMOGLOBIN 29.2 pg (27.0-34.0); MEAN CORPUSCULAR HGB CONC 33.3 g/dL (33.0-35.0); MEAN CORPUSCULAR VOLUME 87.7 fL (80.0-100.0); MEAN PLATELET VOLUME 7.5 fL (7.4-11.0); MONOCYTES # (AUTO) 0.5 x10^3/uL (0.3-0.8); MONOCYTES % (AUTO) 6.3 % (0.0-13.0); NEUTROPHILS # (AUTO) 7.1 x10^3/uL (2.2-4.8); PLATELET COUNT 186 X10^3/uL (150.0-450.0); RED BLOOD COUNT 3.13 X10^6/uL (3.5-5.4); RED CELL DISTRIBUTION WIDTH 15.2 % (11.6-16.5); WHITE BLOOD COUNT 8.6 X10^3/uL (3.6-10.0)
[2020-07-04 06:33] LABS: BLOOD UREA NITROGEN 49 mg/dL (7-18); CALCIUM 7.2 mg/dL (8.5-10.1); CARBON DIOXIDE 17.8 mmol/L (21-32); CHLORIDE 112 mmol/L (98-107); SODIUM 144 mmol/L (136-145); eGFR NON BLACK RACES 11 (>60)
[2020-07-04] MEDS: COLACE CAP 100 MG PO SCH (09:07)
[2020-07-04] MEDS: FOLIC ACID TAB 1 MG PO SCH (09:07)
[2020-07-04] MEDS: LIPITOR TAB 20 MG PO SCH (09:08)
[2020-07-04] MEDS: MIRALAX POWDER (1 DOSE 17 G) PO SCH (09:09)
[2020-07-04] MEDS: LOPRESSOR TAB 50 MG PO SCH ×2 (09:09→20:37)
[2020-07-04] MEDS: PREDNISONE TAB 5 MG PO SCH (09:10)
[2020-07-04] MEDS: NORVASC TAB 5 MG PO SCH (09:10)
[2020-07-04] MEDS: PROTONIX TAB 40 MG PO SCH (09:11)
[2020-07-04] MEDS: SODIUM BICARBONATE TAB 650MG PO SCH ×3 (09:11→21:04)
[2020-07-04] MEDS: ZOSYN VIAL 3.375 GRAMS 3.375 G in NS 100 ML IV + SPIKE MINIBAG* 100 ML IV SCH ×2 (09:12→20:38)
[2020-07-04] MEDS: NS 1000 ML 1,000 ML IV SCH (09:13)
[2020-07-04] MEDS: HEPARIN SODIUM INJ 5000 UNITS SC SCH ×2 (09:34→20:36)
[2020-07-04] MEDS: ZANAFLEX PO SCH ×2 (11:05→23:11)
[2020-07-04] MEDS ORDERED: SOLU-Medrol 125 MG VIAL IVP ONE (12:46)
[2020-07-04] MEDS ORDERED: PHARMACY CONSULT - VANCOMYCIN XX SCH (13:00)
--- NOTE | 2020-07-04 13:01 | PCM.PROG ---
Progress Note Progress Note for Day of Date of Exam: 07/04/20 Subjective Subjective: Patient seen at bedside, no acute events overnight. Patient states her left arm is better today, she is able to lift it up more and move it. She states she had a small BM yesterday. She has been eating ok, able to eat soft foods. Her PICC line is intact and in position. She was started back on IV zosyn yesterday. She did not have any fever overnight but earlier this morning, she had a temp of 100.7. She reports mild dry cough. Labs: WBC 8.6 Hgb: 9.1 BUN/Cr: 48/4.30 lactic acid: 0.7 Repeat blood Cx pending. First set neg CXR: bibasilar hazy opacities concerning for pneumonia Patient's admission COVID-19 test was negative. Plan: will consult pharmacy to renally dose Vanc, Continue Zosyn. Will give one dose of solumedrol for rheumatoid arthritis flare up. Continue duonebs, order sputum culture. Follow repeat blood cultures. Repeat COVID-19 testing. Pending consult with Dr. Coreas. Patient's right leg looks better, not much erythema and able to move some. Patient's left arm appears less swollen and ROM has significantly improved from the day prior. Monitor AM labs. Past Medical Family Social History Past Med/Fam/Surg Hx: No changes since H&P Allergies: Allergies No Known Drug Allergies Allergy (Verified 06/28/20 09:35) Review of Systems ROS: No change since H&P Vital Signs and I&O's Vital Signs: Temperature 100.7 F Pulse Rate [Right Brachial] 75 Pulse Rate 66 Respiratory Rate 20 Blood Pressure [Right Arm] 115/60 Blood Pressure 137/65 O2 Sat by Pulse Oximetry 97 Intake and Output: Intake & Output 07/01/20 07/02/20 07/03/20 07/04/20 23:59 23:59 23:59 23:59 Intake Total 2132 / 2132 687 / 687 970 / 970 450 / 450 Output Total 1150 / 1150 1250 / 1250 1350 / 1350 450 / 450 Balance 982 / 982 -563 / -563 -380 / -380 0 / 0 Physical Exam Oriented: Normal Eyes: Normal Ear: Normal Nose: Normal Respiratory: Generalized and Diminished Cardiovascular: Normal Auscultation: Bowel Sounds: Normal Tenderness: Normal Skin: Other (right foot/lower leg erythema improving, limited ROM, no open wounds or blisters. left arm swelling better, some improvement in ROM ) Musculoskeletal: Right, Left, Arm and Foot Psychiatric: Normal Mood Description: Calm Affect: Anxious Speech Pattern: Appropriate Laboratory and Diagnostics Result Diagrams: 07/04/20 05:10 07/04/20 05:10 Labs: 06/28/20 10:27 Blood Blood Culture - Final 06/28/20 09:50 Blood Blood Culture - Final Laboratory WBC 8.6 X10^3/uL (3.6-10.0) 07/04/20 05:10 RBC 3.13 X10^6/uL (3.5-5.4) L 07/04/20 05:10 Hgb 9.1 g/dL (12.0-16.0) L 07/04/20 05:10 Hct 27.5 % (36.0-47.0) L 07/04/20 05:10 MCV 87.7 fL (80.0-100.0) 07/04/20 05:10 MCH 29.2 pg (27.0-34.0) 07/04/20 05:10 MCHC 33.3 g/dL (33.0-35.0) 07/04/20 05:10 RDW 15.2 % (11.6-16.5) 07/04/20 05:10 Plt Count 186 X10^3/uL (150.0-450.0) 07/04/20 05:10 MPV 7.5 fL (7.4-11.0) 07/04/20 05:10 Neut % (Auto) 82.0 % (42.0-75.0) H 07/04/20 05:10 Lymph % (Auto) 10.0 % (21.0-51.0) L 07/04/20 05:10 [place] % (Auto) 6.3 % (0.0-13.0) 07/04/20 05:10 Eos % (Auto) 1.3 % (0.9-2.9) 07/04/20 05:10 Baso % (Auto) 0.4 % (0.2-1.0) 07/04/20 05:10 Neut # (Auto) 7.1 x10^3/uL (2.2-4.8) H 07/04/20 05:10 Lymph # (Auto) 0.9 X10^3/uL (1.3-2.9) L 07/04/20 05:10 [place] # (Auto) 0.5 x10^3/uL (0.3-0.8) 07/04/20 05:10 Eos # (Auto) 0.1 x10^3/uL (0.0-0.2) 07/04/20 05:10 Baso # (Auto) 0.0 X10^3/uL (0.0-0.1) 07/04/20 05:10 Absolute Nucleated RBC 0.0 /100WBC 07/04/20 05:10 D-Dimer 7.98 ug/ml (0.0-0.57) H* 06/28/20 10:27 Sodium 144 mmol/L (136-145) 07/04/20 05:10 Corrected Sodium TNP 07/04/20 05:10 Potassium 4.1 mmol/L (3.5-5.1) 07/04/20 05:10 Chloride 112 mmol/L (98-107) H 07/04/20 05:10 Carbon Dioxide 17.8 mmol/L (21-32) L 07/04/20 05:10 BUN 49 mg/dL (7-18) H 07/04/20 05:10 Creatinine 4.30 mg/dL (0.55-1.02) H 07/04/20 05:10 Est GFR (MDRD) Af Amer 14 (>60) L 07/04/20 05:10 Est GFR (MDRD) Non-Af 11 (>60) L 07/04/20 05:10 Glucose 98 mg/dL (65-99) 07/04/20 05:10 POC Glucose (mg/dL) 127 mg/dL (65-99) H 07/04/20 11:42 Hemoglobin A1c 6.1 % 06/29/20 10:10 Lactic Acid 0.7 mmol/L (0.4-2.0) 07/03/20 11:45 Calcium 7.2 mg/dL (8.5-10.1) L 07/04/20 05:10 Corrected Calcium 8.4 mg/dL (8.5-10.1) L 07/03/20 04:10 Phosphorus 4.8 mg/dL (2.6-4.7) H 07/01/20 06:01 Magnesium 1.8 mg/dL (1.7-2.9) 07/01/20 06:01 Iron 31 ug/dL (50-175) L 06/29/20 16:30 Transferrin 158 mg/dL (202-364) L 06/29/20 16:30 Ferritin 331 ng/mL (8-252) H 06/29/20 16:30 Total Bilirubin 0.50 mg/dL (0.2-1.0) 07/03/20 04:10 AST 17 Units/L (15-37) 07/03/20 04:10 ALT 12 Units/L (12-78) 07/03/20 04:10 Alkaline Phosphatase 85 Units/L (46-116) 07/03/20 04:10 Total Protein 6.3 g/dL (6.4-8.2) L 07/03/20 04:10 Albumin 1.8 g/dL (3.4-5.0) L 07/03/20 04:10 Globulin 4.5 g/dL (2.5-4.5) 07/03/20 04:10 Albumin/Globulin Ratio 0.4 Ratio (1.1-2.1) L 07/03/20 04:10 Vitamin B12 536 pg/mL (193-986) 06/29/20 16:30 Folate > 20.0 ng/mL (>8.6) 06/29/20 16:30 Specimen Type Catherized urine 06/28/20 14:03 Urine Color Yellow (YELLOW) 06/28/20 14:03 Urine Appearance Clear (CLEAR) 06/28/20 14:03 Urine pH 6.0 (5.0 - 8.0) 06/28/20 14:03 Ur Specific [place] 1.010 (1.000-1.030) 06/28/20 14:03 Urine Protein 4+ (NEGATIVE) 06/28/20 14:03 Urine Glucose (UA) Negative (NEGATIVE) 06/28/20 14:03 Urine Ketones 2+ (NEGATIVE) 06/28/20 14:03 Urine Occult Blood 2+ (NEGATIVE) 06/28/20 14:03 Urine Nitrite Negative (NEGATIVE) 06/28/20 14:03 Urine Bilirubin Negative (NEGATIVE) 06/28/20 14:03 Urine Urobilinogen Normal (NORMAL) 06/28/20 14:03 Ur Leukocyte Esterase Negative (NEGATIVE) 06/28/20 14:03 Urine RBC 0-2 /HPF (0-3) 06/28/20 14:03 Urine WBC 0-2 /HPF (0-5) 06/28/20 14:03 Ur Squamous Epith Cells Few /HPF (NEGATIVE) 06/28/20 14:03 Amorphous Sediment Trace /HPF (NEGATIVE) 06/28/20 14:03 Urine Bacteria Trace /HPF (NEGATIVE) 06/28/20 14:03 Ur Culture Indicated? No/not indicated 06/28/20 14:03 Ur Random Sodium 85 mmol/L (40-220) 06/29/20 18:30 Urine Creatinine 67.74 mg/dL (29-226) 06/29/20 18:30 Influenza Type A Ag Negative-presumptive (NEGATIVE) 06/28/20 10:23 Influenza Type B Ag Negative-presumptive (NEGATIVE) 06/28/20 10:23 SARS-CoV-2 (PCR) Negative (NEGATIVE) 06/28/20 13:31 Blood Type B POSITIVE 06/29/20 11:01 Antibody Screen Negative 06/29/20 11:01 Crossmatch See Detail 06/29/20 11:01 Plan (1) Chronic fracture: Status: Acute (2) Osteonecrosis: Status: Acute (3) Other osteonecrosis, right foot: Status: Acute (4) Foot fracture, right: Status: Acute Qualifiers: Encounter type: initial encounter Fracture type: closed Qualified Code(s): S92.901A - Unspecified fracture of right foot, initial encounter for closed fracture (5) Cellulitis of right foot: Status: Acute (6) Acute on chronic renal failure: Status: Acute Qualifiers: Acute renal failure type: unspecified Chronic kidney disease stage: unspecified stage Qualified Code(s): N17.9 - Acute kidney failure, unspecified; N18.9 - Chronic kidney disease, unspecified (7) Pneumonia: Status: Acute Qualifiers: Laterality: unspecified laterality Lung location: unspecified part of lung Pneumonia type: due to unspecified organism Qualified Code(s): J18.9 - Pneumonia, unspecified organism (8) HTN (hypertension): Status: Acute Qualifiers: Hypertension type: essential hypertension Qualified Code(s): I10 - Essential (primary) hypertension (9) HLD (hyperlipidemia): Status: Acute Qualifiers: Hyperlipidemia type: unspecified Qualified Code(s): E78.5 - Hyperlipidemia, unspecified (10) Avulsion fracture: Status: Acute (11) Anemia: Status: Acute Qualifiers: Anemia type: iron deficiency Iron deficiency anemia type: other iron deficiency Qualified Code(s): D50.8 - Other iron deficiency anemias (12) LEIF (iron deficiency anemia): Status: Acute Qualifiers: Iron deficiency anemia type: unspecified iron deficiency Qualified Code(s): D50.9 - Iron deficiency anemia, unspecified
[2020-07-04] MEDS: VANCOMYCIN HCL VIAL 1.25 G 1.25 G in D5W 250 ML IV 250 ML IV NR (13:20)
[2020-07-04] MEDS: FERROUS GLUCONATE PO SCH (17:26)
[2020-07-04] MEDS: NEURONTIN CAP 300 MG PO SCH (20:37)
[2020-07-04] MEDS: COLACE SYRUP 100 MG UDC PO SCH (21:04)
[2020-07-05] MEDS ORDERED: NS 1000 ML 1,000 ML ONE ×2 (01:23→21:24)
[2020-07-05] MEDS: APRESOLINE INJ 20 MG VIAL IVP PRN (04:21)
[2020-07-05] MEDS: PERCOCET TAB 5/325 MG PO PRN ×3 (04:21→20:00)
[2020-07-05] MEDS: SODIUM BICARBONATE TAB 650MG PO SCH ×3 (05:40→21:41)
[2020-07-05] MEDS: DUONEB 0.5 MG/3 MG (3 mL) NEB SCH ×3 (05:45→21:28)
[2020-07-05] MEDS: MAG-OX TAB PO SCH (06:07)
[2020-07-05 06:21] LABS: BASOPHILS % (AUTO) 0.4 % (0.2-1.0); HEMATOCRIT 29.8 % (36.0-47.0); HEMOGLOBIN 9.8 g/dL (12.0-16.0); LYMPHOCYTES # (AUTO) 0.7 X10^3/uL (1.3-2.9); LYMPHOCYTES % (AUTO) 6.6 % (21.0-51.0); MEAN CORPUSCULAR HEMOGLOBIN 28.7 pg (27.0-34.0); MEAN PLATELET VOLUME 7.6 fL (7.4-11.0); MONOCYTES # (AUTO) 0.4 x10^3/uL (0.3-0.8); MONOCYTES % (AUTO) 3.8 % (0.0-13.0); NEUTROPHILS # (AUTO) 9.6 x10^3/uL (2.2-4.8); NEUTROPHILS % (AUTO) 89.2 % (42.0-75.0); PLATELET COUNT 243 X10^3/uL (150.0-450.0); RED BLOOD COUNT 3.43 X10^6/uL (3.5-5.4); WHITE BLOOD COUNT 10.8 X10^3/uL (3.6-10.0)
--- NOTE | 2020-07-05 06:27 | RAD ---
HISTORYFollow-up pneumoniaSTUDYChest AP [id number] is a left-sided PICC line in good position. The heart is en larged. No congestive heart failure is noted. Extensive calcified bi hilar and mediastinal lymphadeno marin again identified consistent old granulomatous disease. Right basilar infiltrate and subsegmenta l atelectasis is not significantly changed. The remainder of the lung palma are clear. No pleural ef fusions are identified. Bony thorax is unremarkable.IMPRESSIONNo change cardiomegaly without congesti ve heart failureNo change right basilar infiltrate and subsegmental atelectasisLeft lung base now lane arOld granulomatous disease as evidenced by calcified bi hilar and mediastinal lymph nodes.Electronic ally signed by: SAMMY FOY (Jul 05, 2020 06:27:23)
[2020-07-05 06:33] LABS: ALBUMIN 2.1 g/dL (3.4-5.0); CARBON DIOXIDE 16.4 mmol/L (21-32); COR CA(FOR HYPOALB) 8.5 mg/dL (8.5-10.1); CREATININE 4.06 mg/dL (0.55-1.02); TOTAL PROTEIN 7.7 g/dL (6.4-8.2)
--- NOTE | 2020-07-05 09:24 | PCM.PROG ---
Progress Note Progress Note for Day of Date of Exam: 07/05/20 Subjective Subjective: Patient seen at bedside, no events overnight. She seems to be doing a little better this morning. She is able to move her right leg and left arm more today. She has been afebrile overnight. COVID swab was repeated yesterday, results pending. Patient was seen by Dr. Coreas yesterday, he recommended non- surgical management for now and follow up outpatient. Patient denies cough or chills. She is on room air. Labs: WBC 10.8 Hgb: 9.8 BUN/Cr: 49/4.06 Repeat blood Cx pending CXR: right lung infiltrated present Patient's admission COVID-19 test was negative. Plan: continue Vanc/Zosyn, follow COVID results, continue PT/OT as tolerated. Patient would need rehab placement. CM working on that with the family. Continue duonebs prn. Monitor AM labs. Follow cultures. Past Medical Family Social History Past Med/Fam/Surg Hx: No changes since H&P Allergies: Allergies No Known Drug Allergies Allergy (Verified 06/28/20 09:35) Review of Systems ROS: No change since H&P Vital Signs and I&O's Vital Signs: Temperature 98.4 F Pulse Rate [Right Brachial] 90 Pulse Rate 65 Respiratory Rate 18 Blood Pressure [Right Arm] 165/77 Blood Pressure 137/65 O2 Sat by Pulse Oximetry 98 Intake and Output: Intake & Output 07/02/20 07/03/20 07/04/20 07/05/20 23:59 23:59 23:59 23:59 Intake Total 687 / 687 970 / 970 1710 / 1710 570 / 570 Output Total 1250 / 1250 1350 / 1350 1200 / 1200 300 / 300 Balance -563 / -563 -380 / -380 510 / 510 270 / 270 Physical Exam Oriented: Normal Eyes: Normal Ear: Normal Nose: Normal Respiratory: Generalized and Diminished Cardiovascular: Normal Auscultation: Bowel Sounds: Normal Tenderness: Normal Skin: Other (right foot/lower leg erythema resolved, ROM improved , no open wounds or blisters. left arm swelling better, some improvement in ROM ) Musculoskeletal: Right, Left, Arm and Foot Psychiatric: Anxiety Mood Description: Calm Affect: Anxious Speech Pattern: Appropriate and Delayed Laboratory and Diagnostics Result Diagrams: 07/05/20 05:55 07/05/20 05:55 Labs: 06/28/20 10:27 Blood Blood Culture - Final 06/28/20 09:50 Blood Blood Culture - Final Laboratory WBC 10.8 X10^3/uL (3.6-10.0) H 07/05/20 05:55 RBC 3.43 X10^6/uL (3.5-5.4) L 07/05/20 05:55 Hgb 9.8 g/dL (12.0-16.0) L 07/05/20 05:55 Hct 29.8 % (36.0-47.0) L 07/05/20 05:55 MCV 87.0 fL (80.0-100.0) 07/05/20 05:55 MCH 28.7 pg (27.0-34.0) 07/05/20 05:55 MCHC 33.0 g/dL (33.0-35.0) 07/05/20 05:55 RDW 15.0 % (11.6-16.5) 07/05/20 05:55 Plt Count 243 X10^3/uL (150.0-450.0) 07/05/20 05:55 MPV 7.6 fL (7.4-11.0) 07/05/20 05:55 Neut % (Auto) 89.2 % (42.0-75.0) H 07/05/20 05:55 Lymph % (Auto) 6.6 % (21.0-51.0) L 07/05/20 05:55 [place] % (Auto) 3.8 % (0.0-13.0) 07/05/20 05:55 Eos % (Auto) 0.0 % (0.9-2.9) L 07/05/20 05:55 Baso % (Auto) 0.4 % (0.2-1.0) 07/05/20 05:55 Neut # (Auto) 9.6 x10^3/uL (2.2-4.8) H 07/05/20 05:55 Lymph # (Auto) 0.7 X10^3/uL (1.3-2.9) L 07/05/20 05:55 [place] # (Auto) 0.4 x10^3/uL (0.3-0.8) 07/05/20 05:55 Eos # (Auto) 0.0 x10^3/uL (0.0-0.2) 07/05/20 05:55 Baso # (Auto) 0.0 X10^3/uL (0.0-0.1) 07/05/20 05:55 Absolute Nucleated RBC 0.0 /100WBC 07/05/20 05:55 D-Dimer 7.98 ug/ml (0.0-0.57) H* 06/28/20 10:27 Sodium 142 mmol/L (136-145) 07/05/20 05:55 Corrected Sodium 143 mmol/L (136-145) 07/05/20 05:55 Potassium 4.0 mmol/L (3.5-5.1) 07/05/20 05:55 Chloride 109 mmol/L (98-107) H 07/05/20 05:55 Carbon Dioxide 16.4 mmol/L (21-32) L 07/05/20 05:55 BUN 49 mg/dL (7-18) H 07/05/20 05:55 Creatinine 4.06 mg/dL (0.55-1.02) H 07/05/20 05:55 Est GFR (MDRD) Af Amer 14 (>60) L 07/05/20 05:55 Est GFR (MDRD) Non-Af 12 (>60) L 07/05/20 05:55 Glucose 157 mg/dL (65-99) H 07/05/20 05:55 POC Glucose (mg/dL) 151 mg/dL (65-99) H 07/05/20 05:18 Hemoglobin A1c 6.1 % 06/29/20 10:10 Lactic Acid 0.7 mmol/L (0.4-2.0) 07/03/20 11:45 Calcium 7.0 mg/dL (8.5-10.1) L 07/05/20 05:55 Corrected Calcium 8.5 mg/dL (8.5-10.1) 07/05/20 05:55 Phosphorus 4.8 mg/dL (2.6-4.7) H 07/01/20 06:01 Magnesium 1.8 mg/dL (1.7-2.9) 07/01/20 06:01 Iron 31 ug/dL (50-175) L 06/29/20 16:30 Transferrin 158 mg/dL (202-364) L 06/29/20 16:30 Ferritin 331 ng/mL (8-252) H 06/29/20 16:30 Total Bilirubin 0.70 mg/dL (0.2-1.0) 07/05/20 05:55 AST 28 Units/L (15-37) 07/05/20 05:55 ALT 15 Units/L (12-78) 07/05/20 05:55 Alkaline Phosphatase 114 Units/L (46-116) 07/05/20 05:55 Total Protein 7.7 g/dL (6.4-8.2) 07/05/20 05:55 Albumin 2.1 g/dL (3.4-5.0) L 07/05/20 05:55 Globulin 5.6 g/dL (2.5-4.5) H 07/05/20 05:55 Albumin/Globulin Ratio 0.4 Ratio (1.1-2.1) L 07/05/20 05:55 Vitamin B12 536 pg/mL (193-986) 06/29/20 16:30 Folate > 20.0 ng/mL (>8.6) 06/29/20 16:30 Specimen Type Catherized urine 06/28/20 14:03 Urine Color Yellow (YELLOW) 06/28/20 14:03 Urine Appearance Clear (CLEAR) 06/28/20 14:03 Urine pH 6.0 (5.0 - 8.0) 06/28/20 14:03 Ur Specific [place] 1.010 (1.000-1.030) 06/28/20 14:03 Urine Protein 4+ (NEGATIVE) 06/28/20 14:03 Urine Glucose (UA) Negative (NEGATIVE) 06/28/20 14:03 Urine Ketones 2+ (NEGATIVE) 06/28/20 14:03 Urine Occult Blood 2+ (NEGATIVE) 06/28/20 14:03 Urine Nitrite Negative (NEGATIVE) 06/28/20 14:03 Urine Bilirubin Negative (NEGATIVE) 06/28/20 14:03 Urine Urobilinogen Normal (NORMAL) 06/28/20 14:03 Ur Leukocyte Esterase Negative (NEGATIVE) 06/28/20 14:03 Urine RBC 0-2 /HPF (0-3) 06/28/20 14:03 Urine WBC 0-2 /HPF (0-5) 06/28/20 14:03 Ur Squamous Epith Cells Few /HPF (NEGATIVE) 06/28/20 14:03 Amorphous Sediment Trace /HPF (NEGATIVE) 06/28/20 14:03 Urine Bacteria Trace /HPF (NEGATIVE) 06/28/20 14:03 Ur Culture Indicated? No/not indicated 06/28/20 14:03 Ur Random Sodium 85 mmol/L (40-220) 06/29/20 18:30 Urine Creatinine 67.74 mg/dL (29-226) 06/29/20 18:30 Influenza Type A Ag Negative-presumptive (NEGATIVE) 06/28/20 10:23 Influenza Type B Ag Negative-presumptive (NEGATIVE) 06/28/20 10:23 SARS-CoV-2 (PCR) Negative (NEGATIVE) 06/28/20 13:31 Blood Type B POSITIVE 06/29/20 11:01 Antibody Screen Negative 06/29/20 11:01 Crossmatch See Detail 06/29/20 11:01 Plan (1) Chronic fracture: Status: Acute (2) Osteonecrosis: Status: Acute (3) Other osteonecrosis, right foot: Status: Acute (4) Foot fracture, right: Status: Acute Qualifiers: Encounter type: initial encounter Fracture type: closed Qualified Code(s): S92.901A - Unspecified fracture of right foot, initial encounter for closed fracture (5) Cellulitis of right foot: Status: Acute (6) Acute on chronic renal failure: Status: Acute Qualifiers: Acute renal failure type: unspecified Chronic kidney disease stage: unspecified stage Qualified Code(s): N17.9 - Acute kidney failure, unspecified; N18.9 - Chronic kidney disease, unspecified (7) Pneumonia: Status: Acute Qualifiers: Laterality: unspecified laterality Lung location: unspecified part of lung Pneumonia type: due to unspecified organism Qualified Code(s): J18.9 - Pneumonia, unspecified organism (8) HTN (hypertension): Status: Acute Qualifiers: Hypertension type: essential hypertension Qualified Code(s): I10 - Esse ntial (primary) hypertension (9) HLD (hyperlipidemia): Status: Acute Qualifiers: Hyperlipidemia type: unspecified Qualified Code(s): E78.5 - Hyp erlipidemia, unspecified (10) Avulsion fracture: Status: Acute (11) Anemia: Status: Acute Qualifiers: Anemia type: iron deficiency Iron deficiency anemia type: other iron deficiency Qualified Code(s): D50.8 - Other iron deficiency anemias (12) LEIF (iron deficiency anemia): Status: Acute Qualifiers: Iron deficiency anemia type: unspecified iron deficiency Qualified Code(s): D50.9 - Iron deficiency anemia, unspecified
[2020-07-05] MEDS: COLACE SYRUP 100 MG UDC PO SCH ×2 (09:42→20:14)
[2020-07-05] MEDS: FOLIC ACID TAB 1 MG PO SCH (09:43)
[2020-07-05] MEDS: HEPARIN SODIUM INJ 5000 UNITS SC SCH ×2 (09:43→20:15)
[2020-07-05] MEDS: MIRALAX POWDER (1 DOSE 17 G) PO SCH (09:44)
[2020-07-05] MEDS: LOPRESSOR TAB 50 MG PO SCH ×2 (09:44→20:15)
[2020-07-05] MEDS: LIPITOR TAB 20 MG PO SCH (09:44)
[2020-07-05] MEDS: NORVASC TAB 5 MG PO SCH (09:45)
[2020-07-05] MEDS: PREDNISONE TAB 5 MG PO SCH (09:46)
[2020-07-05] MEDS: ZOSYN VIAL 3.375 GRAMS 3.375 G in NS 100 ML IV + SPIKE MINIBAG* 100 ML IV SCH ×2 (09:46→20:16)
[2020-07-05] MEDS: PROTONIX TAB 40 MG PO SCH (09:46)
[2020-07-05] MEDS: ZANAFLEX PO SCH ×2 (11:34→23:11)
[2020-07-05] MEDS ORDERED: PHARMACY COMMENT IV NR (12:30)
[2020-07-05 13:15] LABS: CREATININE 4.14 mg/dL (0.55-1.02); VANCOMYCIN,TROUGH 16.4 ug/mL (15-20)
[2020-07-05] MEDS: VANCOMYCIN HCL VIAL 1.25 G 1.25 G in D5W 250 ML IV 250 ML IV NR (13:38)
[2020-07-05] MEDS: VANCOMYCIN HCL VIAL 1.25 G 1.25 G in NS 250 ML IV 250 ML IV NR (13:49)
[2020-07-05] MEDS: FERROUS GLUCONATE PO SCH (17:25)
[2020-07-05] MEDS: NEURONTIN CAP 300 MG PO SCH (20:15)
[2020-07-06] MEDS: SODIUM BICARBONATE TAB 650MG PO SCH ×3 (05:28→21:31)
[2020-07-06] MEDS: DUONEB 0.5 MG/3 MG (3 mL) NEB SCH ×4 (05:43→21:45)
[2020-07-06] MEDS: MAG-OX TAB PO SCH (06:00)
[2020-07-06 06:22] LABS: ALBUMIN 2.1 g/dL (3.4-5.0); CALCIUM 7.1 mg/dL (8.5-10.1); CARBON DIOXIDE 16.6 mmol/L (21-32); COR CA(FOR HYPOALB) 8.6 mg/dL (8.5-10.1); CREATININE 3.9 mg/dL (0.55-1.02); TOTAL PROTEIN 7.2 g/dL (6.4-8.2)
[2020-07-06 06:23] LABS: BASOPHILS % (AUTO) 0.3 % (0.2-1.0); EOSINOPHILS # (AUTO) 0.1 x10^3/uL (0.0-0.2); EOSINOPHILS % (AUTO) 1.2 % (0.9-2.9); HEMATOCRIT 28.7 % (36.0-47.0); HEMOGLOBIN 9.5 g/dL (12.0-16.0); MEAN CORPUSCULAR HGB CONC 33.2 g/dL (33.0-35.0); MEAN CORPUSCULAR VOLUME 87.4 fL (80.0-100.0); MEAN PLATELET VOLUME 7.5 fL (7.4-11.0); MONOCYTES # (AUTO) 0.5 x10^3/uL (0.3-0.8); MONOCYTES % (AUTO) 5.5 % (0.0-13.0); NEUTROPHILS # (AUTO) 7.9 x10^3/uL (2.2-4.8); PLATELET COUNT 242 X10^3/uL (150.0-450.0); RED BLOOD COUNT 3.28 X10^6/uL (3.5-5.4); RED CELL DISTRIBUTION WIDTH 14.9 % (11.6-16.5); WHITE BLOOD COUNT 9.6 X10^3/uL (3.6-10.0)
--- NOTE | 2020-07-06 09:30 | PCM.PROG ---
Progress Note Progress Note for Day of Date of Exam: 07/06/20 Subjective Subjective: Patient seen at bedside, no events overnight. Patient has been afebrile. She states she started having diarrhea yesterday, had at least 3-4 loose stools. She states she has cramps this morning. She was constipated before and did get stool softners. She states her right leg and left arm are better. She did work with PT/OT a little bit. Her repeat COVID swab is pending. She is currently on RA, no cough. Labs: WBC 9.6 Hgb: 9.5 BUN/Cr: 50/3.90 Blood Cx (-) CXR: right lung infiltrated present Patient's admission COVID-19 test was negative. Plan: Will get a KUB, patient's abdomen appears distended on exam, continue Vanc/Zosyn, follow COVID results, continue PT/OT as tolerated. Patient would need rehab placement. CM working on that with the family. Continue duonebs prn. Monitor AM labs. Past Medical Family Social History Past Med/Fam/Surg Hx: No changes since H&P Allergies: Allergies No Known Drug Allergies Allergy (Verified 06/28/20 09:35) Review of Systems ROS: No change since H&P Vital Signs and I&O's Vital Signs: Temperature 98.5 F Pulse Rate [Right Brachial] 94 Pulse Rate 77 Respiratory Rate 20 Blood Pressure [Right Arm] 144/78 Blood Pressure 137/65 O2 Sat by Pulse Oximetry 100 Intake and Output: Intake & Output 07/03/20 07/04/20 07/05/20 07/06/20 23:59 23:59 23:59 23:59 Intake Total 970 / 970 1710 / 1710 1590 / 1590 700 / 700 Output Total 1350 / 1350 1200 / 1200 600 / 600 300 / 300 Balance -380 / -380 510 / 510 990 / 990 400 / 400 Physical Exam Oriented: Normal Eyes: Normal Ear: Normal Nose: Normal Respiratory: Generalized and Diminished Cardiovascular: Normal Auscultation: Bowel Sounds: Increased and High Pitched Palpation: Other (distended ) Tenderness: Diffuse Skin: Other (right foot/lower leg erythema resolved, ROM improved, left arm swelling better, some improvement in ROM ) Musculoskeletal: Right, Left, Arm and Foot Psychiatric: Anxiety Mood Description: Calm Affect: Anxious Speech Pattern: Delayed Laboratory and Diagnostics Result Diagrams: 07/06/20 05:20 07/06/20 05:20 Labs: 07/03/20 11:55 Blood Blood Culture - Preliminary 07/03/20 11:45 Blood Blood Culture - Preliminary 06/28/20 10:27 Blood Blood Culture - Final 06/28/20 09:50 Blood Blood Culture - Final Laboratory WBC 9.6 X10^3/uL (3.6-10.0) 07/06/20 05:20 RBC 3.28 X10^6/uL (3.5-5.4) L 07/06/20 05:20 Hgb 9.5 g/dL (12.0-16.0) L 07/06/20 05:20 Hct 28.7 % (36.0-47.0) L 07/06/20 05:20 MCV 87.4 fL (80.0-100.0) 07/06/20 05:20 MCH 29.0 pg (27.0-34.0) 07/06/20 05:20 MCHC 33.2 g/dL (33.0-35.0) 07/06/20 05:20 RDW 14.9 % (11.6-16.5) 07/06/20 05:20 Plt Count 242 X10^3/uL (150.0-450.0) 07/06/20 05:20 MPV 7.5 fL (7.4-11.0) 07/06/20 05:20 Neut % (Auto) 83.0 % (42.0-75.0) H 07/06/20 05:20 Lymph % (Auto) 10.0 % (21.0-51.0) L 07/06/20 05:20 [place] % (Auto) 5.5 % (0.0-13.0) 07/06/20 05:20 Eos % (Auto) 1.2 % (0.9-2.9) 07/06/20 05:20 Baso % (Auto) 0.3 % (0.2-1.0) 07/06/20 05:20 Neut # (Auto) 7.9 x10^3/uL (2.2-4.8) H 07/06/20 05:20 Lymph # (Auto) 1.0 X10^3/uL (1.3-2.9) L 07/06/20 05:20 [place] # (Auto) 0.5 x10^3/uL (0.3-0.8) 07/06/20 05:20 Eos # (Auto) 0.1 x10^3/uL (0.0-0.2) 07/06/20 05:20 Baso # (Auto) 0.0 X10^3/uL (0.0-0.1) 07/06/20 05:20 Absolute Nucleated RBC 0.0 /100WBC 07/06/20 05:20 D-Dimer 7.98 ug/ml (0.0-0.57) H* 06/28/20 10:27 Sodium 145 mmol/L (136-145) 07/06/20 05:20 Corrected Sodium 146 mmol/L (136-145) H 07/06/20 05:20 Potassium 3.6 mmol/L (3.5-5.1) 07/06/20 05:20 Chloride 112 mmol/L (98-107) H 07/06/20 05:20 Carbon Dioxide 16.6 mmol/L (21-32) L 07/06/20 05:20 BUN 50 mg/dL (7-18) H 07/06/20 05:20 Creatinine 3.90 mg/dL (0.55-1.02) H 07/06/20 05:20 Est GFR (MDRD) Af Amer 15 (>60) L 07/06/20 05:20 Est GFR (MDRD) Non-Af 13 (>60) L 07/06/20 05:20 Glucose 121 mg/dL (65-99) H 07/06/20 05:20 POC Glucose (mg/dL) 98 mg/dL (65-99) 07/06/20 05:16 Hemoglobin A1c 6.1 % 06/29/20 10:10 Lactic Acid 0.7 mmol/L (0.4-2.0) 07/03/20 11:45 Calcium 7.1 mg/dL (8.5-10.1) L 07/06/20 05:20 Corrected Calcium 8.6 mg/dL (8.5-10.1) 07/06/20 05:20 Phosphorus 4.8 mg/dL (2.6-4.7) H 07/01/20 06:01 Magnesium 1.8 mg/dL (1.7-2.9) 07/01/20 06:01 Iron 31 ug/dL (50-175) L 06/29/20 16:30 Transferrin 158 mg/dL (202-364) L 06/29/20 16:30 Ferritin 331 ng/mL (8-252) H 06/29/20 16:30 Total Bilirubin 0.60 mg/dL (0.2-1.0) 07/06/20 05:20 AST 26 Units/L (15-37) 07/06/20 05:20 ALT 14 Units/L (12-78) 07/06/20 05:20 Alkaline Phosphatase 100 Units/L (46-116) 07/06/20 05:20 Total Protein 7.2 g/dL (6.4-8.2) 07/06/20 05:20 Albumin 2.1 g/dL (3.4-5.0) L 07/06/20 05:20 Globulin 5.1 g/dL (2.5-4.5) H 07/06/20 05:20 Albumin/Globulin Ratio 0.4 Ratio (1.1-2.1) L 07/06/20 05:20 Vitamin B12 536 pg/mL (193-986) 06/29/20 16:30 Folate > 20.0 ng/mL (>8.6) 06/29/20 16:30 Specimen Type Catherized urine 06/28/20 14:03 Urine Color Yellow (YELLOW) 06/28/20 14:03 Urine Appearance Clear (CLEAR) 06/28/20 14:03 Urine pH 6.0 (5.0 - 8.0) 06/28/20 14:03 Ur Specific [place] 1.010 (1.000-1.030) 06/28/20 14:03 Urine Protein 4+ (NEGATIVE) 06/28/20 14:03 Urine Glucose (UA) Negative (NEGATIVE) 06/28/20 14:03 Urine Ketones 2+ (NEGATIVE) 06/28/20 14:03 Urine Occult Blood 2+ (NEGATIVE) 06/28/20 14:03 Urine Nitrite Negative (NEGATIVE) 06/28/20 14:03 Urine Bilirubin Negative (NEGATIVE) 06/28/20 14:03 Urine Urobilinogen Normal (NORMAL) 06/28/20 14:03 Ur Leukocyte Esterase Negative (NEGATIVE) 06/28/20 14:03 Urine RBC 0-2 /HPF (0-3) 06/28/20 14:03 Urine WBC 0-2 /HPF (0-5) 06/28/20 14:03 Ur Squamous Epith Cells Few /HPF (NEGATIVE) 06/28/20 14:03 Amorphous Sediment Trace /HPF (NEGATIVE) 06/28/20 14:03 Urine Bacteria Trace /HPF (NEGATIVE) 06/28/20 14:03 Ur Culture Indicated? No/not indicated 06/28/20 14:03 Ur Random Sodium 85 mmol/L (40-220) 06/29/20 18:30 Urine Creatinine 67.74 mg/dL (29-226) 06/29/20 18:30 Vancomycin Trough 16.4 ug/mL (15-20) 07/05/20 12:55 Influenza Type A Ag Negative-presumptive (NEGATIVE) 06/28/20 10:23 Influenza Type B Ag Negative-presumptive (NEGATIVE) 06/28/20 10:23 SARS-CoV-2 (PCR) Negative (NEGATIVE) 06/28/20 13:31 Blood Type B POSITIVE 06/29/20 11:01 Antibody Screen Negative 06/29/20 11:01 Crossmatch See Detail 06/29/20 11:01 Plan (1) Chronic fracture: Status: Acute (2) Osteonecrosis: Status: Acute (3) Other osteonecrosis, right foot: Status: Acute (4) Foot fracture, right: Status: Acute Qualifiers: Encounter type: initial encounter Fracture type: closed Qualified Code(s): S92.901A - Unspecified fracture of right foot, initial encounter for closed fracture (5) Cellulitis of right foot: Status: Acute (6) Acute on chronic renal failure: Status: Acute Qualifiers: Acute renal failure type: unspecified Chronic kidney disease stage: unspecified stage Qualified Code(s): N17.9 - Acute kidney failure, unspecified; N18.9 - Chronic kidney disease, unspecified (7) Pneumonia: Status: Acute Qualifiers: Laterality: unspecified laterality Lung location: unspecified part of lung Pneumonia type: due to unspecified organism Qualified Code(s): J18.9 - Pneumonia, unspecified organism (8) HTN (hypertension): Status: Acute Qualifiers: Hypertension type: essential hypertension Qualified Code(s): I10 - Essential (primary) hypertension (9) HLD (hyperlipidemia): Status: Acute Qualifiers: Hyperlipidemia type: unspecified Qualified Code(s): E78.5 - Hyperlipidemia, unspecified (10) Avulsion fracture: Status: Acute (11) Anemia: Status: Acute Qualifiers: Anemia type: iron deficiency Iron deficiency anemia type: other iron deficiency Qualified Code(s): D50.8 - Other iron deficiency anemias (12) LEIF (iron deficiency anemia): Status: Acute Qualifiers: Iron deficiency anemia type: unspecified iron deficiency Qualified Code(s): D50.9 - Iron deficiency anemia, unspecified
[2020-07-06] MEDS: ZOSYN VIAL 3.375 GRAMS 3.375 G in NS 100 ML IV + SPIKE MINIBAG* 100 ML IV SCH ×2 (09:49→20:48)
[2020-07-06] MEDS: HEPARIN SODIUM INJ 5000 UNITS SC SCH ×2 (09:50→20:46)
[2020-07-06] MEDS: FOLIC ACID TAB 1 MG PO SCH (09:59)
[2020-07-06] MEDS: LIPITOR TAB 20 MG PO SCH (09:59)
[2020-07-06] MEDS: NORVASC TAB 5 MG PO SCH (09:59)
[2020-07-06] MEDS: PROTONIX TAB 40 MG PO SCH (09:59)
[2020-07-06] MEDS: LOPRESSOR TAB 50 MG PO SCH ×2 (09:59→20:47)
[2020-07-06] MEDS: PREDNISONE TAB 5 MG PO SCH (09:59)
[2020-07-06] MEDS: ZANAFLEX PO SCH ×2 (10:02→22:46)
--- NOTE | 2020-07-06 11:26 | RAD ---
HISTORYAbdominal pain, abdominal distensionSTUDYKUBCOMPARISONFINDINGSThe abdominal gas pattern is nonspecific and nonobstructive. No a bnormal masses or abnormal calcifications are identified. Regional skeleton appears intact.IMPRESSION Nonspecific, nonobstructive bowel gas patternElectronically signed by: SAMMY FOY (Jul 06, 2020 11 :26:37)
[2020-07-06] MEDS ORDERED: PHARMACY COMMENT IV NR (13:30)
[2020-07-06 15:11] LABS: CREATININE 3.93 mg/dL (0.55-1.02)
[2020-07-06] MEDS: HumuLIN R SC PRN (15:58)
[2020-07-06 16:12] LABS: VANCOMYCIN,TROUGH 29.1 ug/mL (15-20)
[2020-07-06] MEDS: VANCOMYCIN HCL VIAL 1.25 G 1.25 G in NS 250 ML IV 250 ML IV NR (16:15)
[2020-07-06] MEDS: FERROUS GLUCONATE PO SCH (17:11)
[2020-07-06] MEDS: NEURONTIN CAP 300 MG PO SCH (20:47)
[2020-07-06] MEDS: PERCOCET TAB 5/325 MG PO PRN (20:48)
[2020-07-06] MEDS ORDERED: NS 1000 ML 1,000 ML ONE (21:02)
[2020-07-07] MEDS: PERCOCET TAB 5/325 MG PO PRN ×2 (02:31→17:01)
[2020-07-07] MEDS: APRESOLINE INJ 20 MG VIAL IVP PRN (04:15)
[2020-07-07] MEDS: SODIUM BICARBONATE TAB 650MG PO SCH ×2 (05:41→14:10)
[2020-07-07] MEDS: DUONEB 0.5 MG/3 MG (3 mL) NEB SCH ×2 (06:10→13:30)
[2020-07-07 06:28] LABS: BASOPHILS # (AUTO) 0.1 X10^3/uL (0.0-0.1); BASOPHILS % (AUTO) 0.5 % (0.2-1.0); EOSINOPHILS # (AUTO) 0.3 x10^3/uL (0.0-0.2); EOSINOPHILS % (AUTO) 2.7 % (0.9-2.9); HEMATOCRIT 29.6 % (36.0-47.0); HEMOGLOBIN 9.9 g/dL (12.0-16.0); LYMPHOCYTES # (AUTO) 1.1 X10^3/uL (1.3-2.9); LYMPHOCYTES % (AUTO) 10.8 % (21.0-51.0); MEAN CORPUSCULAR HEMOGLOBIN 29.2 pg (27.0-34.0); MEAN CORPUSCULAR HGB CONC 33.5 g/dL (33.0-35.0); MEAN CORPUSCULAR VOLUME 87.1 fL (80.0-100.0); MEAN PLATELET VOLUME 7.1 fL (7.4-11.0); MONOCYTES # (AUTO) 0.6 x10^3/uL (0.3-0.8); MONOCYTES % (AUTO) 6.3 % (0.0-13.0); NEUTROPHILS # (AUTO) 8.2 x10^3/uL (2.2-4.8); NEUTROPHILS % (AUTO) 79.7 % (42.0-75.0); PLATELET COUNT 260 X10^3/uL (150.0-450.0); WHITE BLOOD COUNT 10.3 X10^3/uL (3.6-10.0)
[2020-07-07 06:49] LABS: ALBUMIN 2.2 g/dL (3.4-5.0); CALCIUM 7.8 mg/dL (8.5-10.1); CARBON DIOXIDE 17.3 mmol/L (21-32); COR CA(FOR HYPOALB) 9.2 mg/dL (8.5-10.1); CREATININE 3.81 mg/dL (0.55-1.02); TOTAL PROTEIN 7.3 g/dL (6.4-8.2)
[2020-07-07] MEDS ORDERED: IMODIUM CAP 2 MG PO ONE (08:10)
[2020-07-07] MEDS ORDERED: BENTYL CAP 10 MG PO SCH (09:00)
[2020-07-07] MEDS ORDERED: DIFLUCAN PO ONE (09:01)
[2020-07-07] MEDS: PREDNISONE TAB 5 MG PO SCH (09:57)
[2020-07-07] MEDS: LOPRESSOR TAB 50 MG PO SCH (09:57)
[2020-07-07] MEDS: ZOSYN VIAL 3.375 GRAMS 3.375 G in NS 100 ML IV + SPIKE MINIBAG* 100 ML IV SCH (09:57)
[2020-07-07] MEDS: LIPITOR TAB 20 MG PO SCH (09:57)
[2020-07-07] MEDS: NORVASC TAB 5 MG PO SCH (09:57)
[2020-07-07] MEDS: FOLIC ACID TAB 1 MG PO SCH (09:57)
[2020-07-07] MEDS: HEPARIN SODIUM INJ 5000 UNITS SC SCH (09:58)
[2020-07-07] MEDS: PROTONIX TAB 40 MG PO SCH (10:03)
[2020-07-07] MEDS: ZANAFLEX PO SCH (10:07)
[2020-07-07] MEDS: HumuLIN R SC PRN ×2 (11:07→16:15)
--- NOTE | 2020-07-07 11:45 | W.DIS.FURT ---
Summary of Discharge Discharge Summary of Date Date of Exam: 07/07/20 Admission Date Date of Admission: 06/29/20 Admission Diagnosis Hospital Course: Ms. Harris is a 59y/o female with a PMH of HTN, HLD, GERD, CKD, Type 2 DM and chronic opioid use presented after a fall with right foot pain and swelling. Patient does has mild cognitive disorder and unable to provide details. She states she fell 1-2 days ago and hurt her right foot so was brought to the ED. She states she tripped over a rug and fell. Unclear what patient's baseline ambulation status is at home, no family present at bedside during my exam. In the ED, patent had a Right foot XR that was concerning for avulsion fracture and bone infarction or sclerotic lesion. MRI was done which showed displaced right foot fracture and multiple areas with osteonecrosis. No osteomyelitis or abscess seen. Patient also had right leg U/S which was negative for DVT. She was started on IV abx and blood cultures were obtained. She was also noted to be anemic on admission which worsened slight the next day and she was given 2 units of PRBCs. Patient also had CXR which showed interstitial airspace opacities concerning for pneumonia. She was also in acute on chronic renal failure. Dr. Coreas with ortho was contacted several times to discuss imaging and recommended to continue IV abx and that patient is not a candidate at this time due to underlying infection. Patient's cellulitis improved. She also had various other imaging including CTAP for abdominal pain which was negative for abdominal process but did show femoral head osteonecrosis. She did not have good IV access so PICC had to be placed in the left arm. Patient started having left arm pain and swelling, U/S was negative for DVT and XR negative for acute fracture. It did show patient having left humerus osteonecrosis. Patient's labs were monitored daily and electrolytes were replaced as needed. Patient's initial COVID swab was negative and also repeat was negative. PT/OT worked with the patient as tolerated and recommend rehab placement. Family was updated about patient's care and wanted patient to go to rehab in [place]. Dr. Coreas also saw the patient and recommended outpatient follow up. Patient's renal function was close to her baseline and will need nephrology follow up. Vital Signs: Vital Signs (72 hours) 07/04/20 12:00 07/04/20 16:00 07/04/20 20:00 Temperature 100.7 F H 99.7 F H 98.6 F Pulse Rate Pulse Rate [Right Brachial] 75 83 97 H Respiratory Rate 20 18 18 Blood Pressure [Right Arm] 115/60 182/74 189/94 O2 Sat by Pulse Oximetry 97 97 98 07/04/20 20:39 07/04/20 21:25 07/04/20 21:39 Temperature Pulse Rate 65 Pulse Rate [Right Brachial] Respiratory Rate 18 19 Blood Pressure [Right Arm] O2 Sat by Pulse Oximetry 95 07/04/20 23:49 07/05/20 04:00 07/05/20 04:21 Temperature 98.7 F 98.4 F Pulse Rate Pulse Rate [Right Brachial] 71 90 Respiratory Rate 18 14 14 Blood Pressure [Right Arm] 169/78 197/99 O2 Sat by Pulse Oximetry 97 98 07/05/20 05:00 07/05/20 05:21 07/05/20 08:00 Temperature 99.1 F Pulse Rate Pulse Rate [Right Brachial] 96 H Respiratory Rate 18 20 Blood Pressure [Right Arm] 165/77 176/80 O2 Sat by Pulse Oximetry 98 07/05/20 09:47 07/05/20 10:47 07/05/20 12:00 Temperature 98.9 F Pulse Rate Pulse Rate [Right Brachial] 72 Respiratory Rate 14 14 20 Blood Pressure [Right Arm] 121/59 O2 Sat by Pulse Oximetry 95 07/05/20 16:00 07/05/20 20:00 07/05/20 21:00 Temperature 98.2 F 97.6 F Pulse Rate Pulse Rate [Right Brachial] 76 86 Respiratory Rate 20 14 14 Blood Pressure [Right Arm] 121/68 150/82 O2 Sat by Pulse Oximetry 98 98 07/05/20 21:28 07/06/20 00:00 07/06/20 04:00 Temperature 97.7 F 97.6 F Pulse Rate 66 Pulse Rate [Right Brachial] 71 75 Respiratory Rate 18 18 Blood Pressure [Right Arm] 125/58 144/67 O2 Sat by Pulse Oximetry 100 96 96 07/06/20 05:43 07/06/20 08:00 07/06/20 12:00 Temperature 98.5 F 98.1 F Pulse Rate 77 Pulse Rate [Right Brachial] 94 H 66 Respiratory Rate 20 20 Blood Pressure [Right Arm] 144/78 97/55 O2 Sat by Pulse Oximetry 98 100 99 07/06/20 16:00 07/06/20 20:00 07/06/20 20:48 Temperature 99.2 F 97.6 F Pulse Rate Pulse Rate [Right Brachial] 80 87 Respiratory Rate 20 20 19 Blood Pressure [Right Arm] 142/75 193/93 O2 Sat by Pulse Oximetry 99 95 07/06/20 21:45 07/06/20 21:48 07/07/20 00:00 Temperature 97.6 F Pulse Rate 80 Pulse Rate [Right Brachial] 73 Respiratory Rate 16 19 Blood Pressure [Right Arm] 145/66 O2 Sat by Pulse Oximetry 98 98 07/07/20 02:31 07/07/20 03:31 07/07/20 04:00 Temperature 97.5 F L Pulse Rate Pulse Rate [Right Brachial] 84 Respiratory Rate 17 17 17 Blood Pressure [Right Arm] 179/85 O2 Sat by Pulse Oximetry 98 07/07/20 06:10 07/07/20 08:00 Temperature 98.4 F Pulse Rate 84 Pulse Rate [Right Brachial] 107 H Respiratory Rate 18 Blood Pressure [Right Arm] 199/97 O2 Sat by Pulse Oximetry 98 96 Labs: Laboratory Last Values WBC 10.3 X10^3/uL (3.6-10.0) H 07/07/20 06:00 RBC 3.40 X10^6/uL (3.5-5.4) L 07/07/20 06:00 Hgb 9.9 g/dL (12.0-16.0) L 07/07/20 06:00 Hct 29.6 % (36.0-47.0) L 07/07/20 06:00 MCV 87.1 fL (80.0-100.0) 07/07/20 06:00 MCH 29.2 pg (27.0-34.0) 07/07/20 06:00 MCHC 33.5 g/dL (33.0-35.0) 07/07/20 06:00 RDW 15.0 % (11.6-16.5) 07/07/20 06:00 Plt Count 260 X10^3/uL (150.0-450.0) 07/07/20 06:00 MPV 7.1 fL (7.4-11.0) L 07/07/20 06:00 Neut % (Auto) 79.7 % (42.0-75.0) H 07/07/20 06:00 Lymph % (Auto) 10.8 % (21.0-51.0) L 07/07/20 06:00 [place] % (Auto) 6.3 % (0.0-13.0) 07/07/20 06:00 Eos % (Auto) 2.7 % (0.9-2.9) 07/07/20 06:00 Baso % (Auto) 0.5 % (0.2-1.0) 07/07/20 06:00 Neut # (Auto) 8.2 x10^3/uL (2.2-4.8) H 07/07/20 06:00 Lymph # (Auto) 1.1 X10^3/uL (1.3-2.9) L 07/07/20 06:00 [place] # (Auto) 0.6 x10^3/uL (0.3-0.8) 07/07/20 06:00 Eos # (Auto) 0.3 x10^3/uL (0.0-0.2) H 07/07/20 06:00 Baso # (Auto) 0.1 X10^3/uL (0.0-0.1) 07/07/20 06:00 Absolute Nucleated RBC 0.0 /100WBC 07/07/20 06:00 D-Dimer 7.98 ug/ml (0.0-0.57) H* 06/28/20 10:27 Sodium 147 mmol/L (136-145) H 07/07/20 06:00 Corrected Sodium 147 mmol/L (136-145) H 07/07/20 06:00 Potassium 3.5 mmol/L (3.5-5.1) 07/07/20 06:00 Chloride 113 mmol/L (98-107) H 07/07/20 06:00 Carbon Dioxide 17.3 mmol/L (21-32) L 07/07/20 06:00 BUN 47 mg/dL (7-18) H 07/07/20 06:00 Creatinine 3.81 mg/dL (0.55-1.02) H 07/07/20 06:00 Est GFR (MDRD) Af Amer 16 (>60) L 07/07/20 06:00 Est GFR (MDRD) Non-Af 13 (>60) L 07/07/20 06:00 Glucose 114 mg/dL (65-99) H 07/07/20 06:00 POC Glucose (mg/dL) 168 mg/dL (65-99) H 07/07/20 11:00 Hemoglobin A1c 6.1 % 06/29/20 10:10 Lactic Acid 0.7 mmol/L (0.4-2.0) 07/03/20 11:45 Calcium 7.8 mg/dL (8.5-10.1) L 07/07/20 06:00 Corrected Calcium 9.2 mg/dL (8.5-10.1) 07/07/20 06:00 Phosphorus 4.8 mg/dL (2.6-4.7) H 07/01/20 06:01 Magnesium 1.8 mg/dL (1.7-2.9) 07/01/20 06:01 Iron 31 ug/dL (50-175) L 06/29/20 16:30 Transferrin 158 mg/dL (202-364) L 06/29/20 16:30 Ferritin 331 ng/mL (8-252) H 06/29/20 16:30 Total Bilirubin 0.70 mg/dL (0.2-1.0) 07/07/20 06:00 AST 35 Units/L (15-37) 07/07/20 06:00 ALT 16 Units/L (12-78) 07/07/20 06:00 Alkaline Phosphatase 113 Units/L (46-116) 07/07/20 06:00 Total Protein 7.3 g/dL (6.4-8.2) 07/07/20 06:00 Albumin 2.2 g/dL (3.4-5.0) L 07/07/20 06:00 Globulin 5.1 g/dL (2.5-4.5) H 07/07/20 06:00 Albumin/Globulin Ratio 0.4 Ratio (1.1-2.1) L 07/07/20 06:00 Vitamin B12 536 pg/mL (193-986) 06/29/20 16:30 Folate > 20.0 ng/mL (>8.6) 06/29/20 16:30 Specimen Type Catherized urine 06/28/20 14:03 Urine Color Yellow (YELLOW) 06/28/20 14:03 Urine Appearance Clear (CLEAR) 06/28/20 14:03 Urine pH 6.0 (5.0 - 8.0) 06/28/20 14:03 Ur Specific Dawn 1.010 (1.000-1.030) 06/28/20 14:03 Urine Protein 4+ (NEGATIVE) 06/28/20 14:03 Urine Glucose (UA) Negative (NEGATIVE) 06/28/20 14:03 Urine Ketones 2+ (NEGATIVE) 06/28/20 14:03 Urine Occult Blood 2+ (NEGATIVE) 06/28/20 14:03 Urine Nitrite Negative (NEGATIVE) 06/28/20 14:03 Urine Bilirubin Negative (NEGATIVE) 06/28/20 14:03 Urine Urobilinogen Normal (NORMAL) 06/28/20 14:03 Ur Leukocyte Esterase Negative (NEGATIVE) 06/28/20 14:03 Urine RBC 0-2 /HPF (0-3) 06/28/20 14:03 Urine WBC 0-2 /HPF (0-5) 06/28/20 14:03 Ur Squamous Epith Cells Few /HPF (NEGATIVE) 06/28/20 14:03 Amorphous Sediment Trace /HPF (NEGATIVE) 06/28/20 14:03 Urine Bacteria Trace /HPF (NEGATIVE) 06/28/20 14:03 Ur Culture Indicated? No/not indicated 06/28/20 14:03 Ur Random Sodium 85 mmol/L (40-220) 06/29/20 18:30 Urine Creatinine 67.74 mg/dL (29-226) 06/29/20 18:30 Vancomycin Trough 29.1 ug/mL (15-20) H* 07/06/20 14:50 Random Vancomycin 22.9 ug/mL 07/07/20 06:00 Influenza Type A Ag Negative-presumptive (NEGATIVE) 06/28/20 10:23 Influenza Type B Ag Negative-presumptive (NEGATIVE) 06/28/20 10:23 SARS-CoV-2 (PCR) Negative (NEGATIVE) 06/28/20 13:31 Blood Type B POSITIVE 06/29/20 11:01 Antibody Screen Negative 06/29/20 11:01 Crossmatch See Detail 06/29/20 11:01 Reason For Visit: SCOTT, PNEUMONIA Discharge Date Discharge Date: 07/07/20 Discharge Diagnosis All Active Problems (Updated 07/02/20 @ 13:05 by [place]) LEIF (iron deficiency anemia) (Acute) Anemia (Acute) Chronic fracture (Acute) Osteonecrosis (Acute) Avulsion fracture (Acute) Other osteonecrosis, right foot (Acute) HLD (hyperlipidemia) (Acute) HTN (hypertension) (Acute) Pneumonia (Acute) Acute on chronic renal failure (Acute) Cellulitis of right foot (Acute) Muscle spasm (Chronic) Rheumatoid arthritis involving both hips (Chronic) Pneumonia (Acute) Acute renal failure (Acute) Foot fracture, right (Acute) Cellulitis and abscess of right leg (Acute) Plan of Treatment: Continue with present treatment and follow up plan. Pt is to keep follow up appointment as instructed and take medications as ordered. Discharge Medications Discharge Medications: No Known Drug Allergies Allergy (Verified 06/28/20 09:35) CONTINUE taking the following medications amlodipine 5 mg PO DAILY 06/28/20 [History] clonidine HCl 0.1 mg PO DAILY 06/28/20 [History] diazepam 5 mg PO BID PRN 06/28/20 [History] furosemide 40 mg PO DAILY 06/28/20 [History] gabapentin 300 mg PO HS 06/28/20 [History] magnesium oxide 400 mg PO DAILY 06/28/20 [History] metoprolol tartrate 100 mg PO BID 06/28/20 [History] oxycodone 15 mg PO TID PRN 06/28/20 [History] potassium chloride 20 meq PO DAILY 06/28/20 [History] prednisone 5 mg PO DAILY 06/28/20 [History] tamsulosin 0.4 mg PO DAILY 06/28/20 [History] New Prescriptions doxycycline hyclate 100 mg PO BID 5 Days #10 cap 07/07/20 [Rx] folic acid 1 mg PO DAILY #30 tab 07/07/20 [Rx] Follow up and Referral Follow Up: 1 Week (PCP) Discharge Disposition Assessment: Stable at discharge Discharge Disposition: rehab placement in [place] Discharge Condition: Stable
[2020-07-07 16:02] VITALS: BP 144/73
== END 2020-07-07 17:05 | DRG 602 ==
LOC: ER 09:35 → MED/SURG 15:18
PROVIDERS: ADMIT Internal Medicine; ATTEND Internal Medicine
DX: E11.65 Type 2 diabetes mellitus with hyperglycemia; I10 Essential (primary) hypertension; L03.115 Cellulitis of right lower limb; R26.89 Other abnormalities of gait and mobility; Y92.009 Unspecified place in unspecified non-institutional (private) residence as the place of occurrence of the external cause; S92.034A Nondisplaced avulsion fracture of tuberosity of right calcaneus, initial encounter for closed fracture; Z20.828 Contact with and (suspected) exposure to other viral communicable diseases; N17.8 Other acute kidney failure; M06.9 Rheumatoid arthritis, unspecified; W01.0XXA Fall on same level from slipping, tripping and stumbling without subsequent striking against object, initial encounter; K21.9 Gastro-esophageal reflux disease without esophagitis; I87.2 Venous insufficiency (chronic) (peripheral); M87.874 Other osteonecrosis, right foot; E78.5 Hyperlipidemia, unspecified; Z53.8 Procedure and treatment not carried out for other reasons; D50.8 Other iron deficiency anemias; T14.8XXA Other injury of unspecified body region, initial encounter; J18.8 Other pneumonia, unspecified organism; R41.82 Altered mental status, unspecified; R19.7 Diarrhea, unspecified; N18.9 Chronic kidney disease, unspecified